=== PATIENT | female | born 2000 | race Caucasian/White ===

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

== ENCOUNTER → 2020-11-02 | Outpatient (CLI) | payer OTHER, SELFPAY ==
[2020-11-02 10:38] VITALS: BMI 35.9
[2020-11-02 16:31] LABS: Chlamydia Trachomatis by PCR Negative (Negative); Neisserai gonorrhoeae by PCR Negative (Negative); Probe Check PASS; Sample Adequacy Control PASS; Specimen Processing Control PASS
== END | disposition home or self-care (01) ==
LOC: LABSPEC 12:17
PROVIDERS: PCP Nurse Practitioner Family; Referring Provider Nurse Practitioner Women's Health; Visit Provider Nurse Practitioner Women's Health
DX: Z11.3 Encounter for screening for infections with a predominantly sexual mode of transmission (principal)
CPT/HCPCS: 87491; 87591

== ENCOUNTER → 2021-01-02 | Outpatient (CLI) | payer OTHER, SELFPAY ==
[2021-01-02 09:32] VITALS: BMI 37.1
[2021-01-05 16:17] LABS: HPV Reflexed? NOT INDICATED
== END | disposition home or self-care (01) ==
PROVIDERS: PCP Nurse Practitioner Family; Visit Provider Nurse Practitioner Women's Health
DX: Z12.4 Encounter for screening for malignant neoplasm of cervix (principal)
CPT/HCPCS: 88175; G0145

== ENCOUNTER → 2023-11-13 | Outpatient (CLI) | payer OTHER, SELFPAY ==
[2023-11-20 18:39] LABS: HPV Reflexed? NOT INDICATED
== END | disposition home or self-care (01) ==
PROVIDERS: PCP Nurse Practitioner Family; Referring Provider Nurse Practitioner Women's Health; Visit Provider Nurse Practitioner Women's Health
DX: Z12.4 Encounter for screening for malignant neoplasm of cervix (principal)
CPT/HCPCS: 88175; G0145

== ENCOUNTER → 2025-01-05 | Outpatient (CLI) | payer OTHER, SELFPAY ==
--- OUTSIDE RECORDS SUMMARY | 2025-01-05 21:18 | XMS RPT_ITS | CCD ---
Author Organization [facility] Care Team Providers Care Roof Fitter Name Role Phone Sri Damon MD Unavailable [phone] DERREK PADILLA Unavailable Unavailable DEEPALI RODRIGUEZ Unavailable Unavailable STRONG, MANDIE H Unavailable Unavailable PADILLA, DERREK K Unavailable Unavailable JENNIFER, DEEPALI Mcduffie Unavailable Unavailable STRONG, MANDIE H Unavailable Unavailable PADILLA, DERREK K Unavailable Unavailable STRONG, MANDIE H Unavailable Unavailable SUMMER CHAUDHARI Unavailable Unavailable PADILLA, DERREK K Unavailable Unavailable PADILLA, DERREK K Unavailable Unavailable STRONG, MANDIE H Unavailable Unavailable PADILLA, DERREK K Unavailable Unavailable STRONG, MANDIE H Unavailable Unavailable PHILLIP MODESTO S Unavailable Unavailable AMICONE, NICOLE - Attending Unavailable AMICONE, NICOLE - Primary Care Unavailable AMICONE, NICOLE - Admitting Unavailable Unavailable Primary Care Provider Unavailabl e Feliberto WORKERS' COMPENSATION MAGISTRATE, Iftikhar Referring Unavailable Feliberto WORKERS' COMPENSATION MAGISTRATE, Iftikhar Primary Care Unavailable Syl WORKERS' COMPENSATION MAGISTRATE, Alla Attending Unavailable Feliberto WORKERS' COMPENSATION MAGISTRATE-C, Iftikhar Primary Care Provider [phone] Feliberto WORKERS' COMPENSATION MAGISTRATE-C, Iftikhar Referring Provider [phone] [place] WORKERS' COMPENSATION MAGISTRATE-C, Alla Attending Provider Medications Current Medications Medication Drug Class(es) Dates Sig (Normalized) Sig (Original) [place] (Nk) (1 source) Start: 11-13-2023 [place] (Nk) A ctive November 13, 2023 12:00am Completed/Discontinued Medications Medication Drug Class(es) Dates Sig (Normalized) Sig (Original) OXYCODONE-ACETAMIN OPHEN (3 sources) Opioid Agonist Start: 03-07-2017 take 1 tablet by mouth four times daily as needed PERCOCET 5-325 MG TABS One tablet by mouth four times daily as needed OXYCODONE-ACETAMINO PHEN [id number] Sri Damon MD Start: 03-07-2017 take 1 tablet by chela th four times daily as needed PERCOCET 5-325 MG TABS One tablet by chela th four times daily as needed OXYCODONE-ACETAMINOPHEN [id number] Sri Damon MD [id number] actuat albuterol 0.09 mg/actuat metered dose inhaler (2 sources) beta2-Adrenergic Agonist Start: 01-28-2017 take 2 puff(s) by inhalation every four hours as needed for wheezing albuterol HFA (PROAIR HFA) 90 mcg/actuation inhaler Inhale 2 Puffs as instructed every 4 hours as needed for Wheezing/Shortness of Breath (Use with the spacer as directed). 1 Inhaler 0 01/28/2017 Active Comment on above: Inhale 2 Puffs as in structed every 4 hours as needed for Wheezing/Shortness of Breath (Use with the spacer as directed). amitriptyline hydrochloride 25 mg oral tablet (4 sources) Tricyclic Antidepressant Start: 07-16-2017 End: 09-10-2018 take 1 tablet by mouth twice daily Amitriptyline 25 mg tablet Discontinued 25 mg PO TWICE A DAY July 16, 2017 1:00am September 10, 2018 8:40am Start: 03-07-2017 AMITRIPTYLINE HCL 10 MG TABS AMITRIPTYLINE HCL [id number] Sri Damon MD breath-actuated 120 actuat beclomethasone dipropionate 0.04 mg/actuat metered dose inhaler (2 sources) Corticosteroid Start: 06-03-2019 take 1 puff(s) by inhalation twice daily QVAR REDIHALER 40 mcg/actuation inhaler Inhale 1 Puff as instructed twice daily. 0 06/03/2019 Active Comment on above: Inhale 1 Puff as ins tructed twice daily. Ethinyl Estradiol / Levonorgestrel (3 sources) Progestin, Estrogen, Progestin-containin g Intrauterine Device Start: 10-06-2020 End: 10-17-2021 take 1 tablet by mouth once daily Levonorgestrel-Et hinyl Estrad (SRONYX) 0.1mg - 20mcg per tablet Take 1 tablet by mouth once daily. 0 10/06/2020 10/17/2021 Discontinued Start: 10-06-2020 take 1 tablet by chela th once daily Levonorgestrel-Ethinyl Estrad (SRONYX) 0.1mg - 20mcg per tablet Take 1 tablet by mouth once daily. 0 10/06/2020 Active Start: 10-28-2019 End: 11-23-2020 take 1 tablet by mouth once daily Levonorgestrel-Ethinyl Estrad (Aviane) 0.1-20 mg-mcg tablet Discontinued 1 {tbl} PO daily 84 4 October 28, 2019 12:00am November 23, 2020 10:55am Comment on above: Take 1 tablet by chela th once daily. Norethindrone Ac-Eth Estradiol (9 sources) Progestin, Estrogen Start: 09-06-2019 End: 10-28-2019 Norethindrone Ac-Eth Estradiol 1-20 mg-mcg tablet Discontinued 1 {tbl} PO DAILY 63 1 September 06, 2019 3:37pm October 28, 2019 3:07pm Start: 06-10-2019 End: 09-06-2019 Norethindrone Ac-Eth Estradi ol 1-20 mg-mcg tablet Discontinued 1 {tbl} PO DAILY 63 1 June 10, 2019 1:30pm September 06, 2019 3:37pm Start: 08-21-2018 End: 06-10-2019 Norethindrone Ac-Eth Estradi ol 1-20 mg-mcg tablet Discontinued 1 {tbl} PO DAILY 63 5 August 21, 2018 9:31am June 10, 2019 1:31pm Start: 07-16-2017 End: 08-21-2018 Norethindrone Ac-Eth Estradi ol 1 EACH tablet Discontinued 1 {tbl} PO DAILY 63 5 July 16, 2017 11:55am August 21, 2018 9:31am Start: 06-21-2017 End: 07-16-2017 Norethindrone Ac-Eth Estradi ol 1 EACH tablet Discontinued 1 {tbl} PO DAILY 21 June 21, 2017 6:39pm July 16, 2017 11:56am Start: 03-07-2017 BLISOVI 24 FE 1-20 MG-MCG(24) TABS NORETHIN CEFERINO- ETH ESTRAD-FE [id number] Sri Damon MD Start: 06-26-2016 End: 06-21-2017 Norethindrone Ac-Eth Estradi ol 1 EACH tablet Discontinued 1 NMA PO DAILY June 26, 2016 1:00am June 21, 2017 6:40pm levonorgestrel 0.387951 mg/hr intrauterine system (2 sources) Progestin, Progestin-containing Intrauterine Device Start: 11-23-2020 End: 11-13-2023 levonorgestrel (MIRENA) 20 mcg/24 hours (7 yrs) 52 mg IUD 1 Each by INTRAUTERINE route one time only for 1 dose. 1 Each 0 10/17/2021 Active Comment on above: 1 Each by INTRAUTERI NE route one time only for 1 dose. melatonin 3 mg oral tablet (3 sources) Start: 03-07-2017 [facility] MELATONIN 3 MG TABS MELATONIN [id number] Sri Damon MD montelukast 10 mg oral tablet (2 sources) Leukotriene Receptor Antagonist Start: 06-23-2019 End: 10-17-2021 take 1 tablet by mouth once daily at bedtime montelukast (SINGULAIR) 10 mg tablet Indications: Moderate persistent asthma, unspecified whether complicated Take 1 tablet by mouth daily at bedtime. 30 tablet 2 06/23/2019 10/17/2021 Discontinued Comment on above: Take 1 tablet by cehla th daily at bedtime. naratriptan 2.5 mg oral tablet (2 sources) Serotonin-1b and Serotonin-1d Receptor Agonist Start: 10-06-2020 take 1 tablet by mouth every twenty-four hours as needed naratriptan (AMERGE) 2.5 mg tablet Take 1 tablet by mouth as needed. TAKE ONE(1) TABLET AT THE ONSET OF HEADACHE; IF HEADACHE RETURNS OR DOES NOT FULLY RESOLVE, THE DOSE MAY BE REPEATED AFTER 4 HOURS; DO NOT EXCEED FIVE(5) MG IN 24 HOURS. 9 tablet 5 10/06/2020 Active Comment on above: Take 1 tablet by chela th as needed. TAKE ONE(1) TABLET AT THE ONSET OF HEADACHE; IF HEADACHE RETURNS OR DOES NOT FULLY RESOLVE, THE DOSE MAY BE REPEATED AFTER 4 HOURS; DO NOT EXCEED FIVE(5) MG IN 24 HOURS. ondansetron 4 mg disintegrating oral tablet (1 source) Serotonin-3 Receptor Antagonist Start: 06-26-2016 End: 07-16-2017 take 1 tablet by mouth every eight hours as needed for nausea Ondansetron 4 MG tablet Discontinued 4 mg PO EVERY 8 HOURS NEEDED as needed for Nausea June 26, 2016 1:00am July 16, 2017 11:30am rizatriptan 10 mg oral tablet (1 source) Serotonin-1b and Serotonin-1d Receptor Agonist Start: 10-28-2019 End: 2021 take 1 tablet by mouth every two hours Rizatriptan 10 mg tablet Discontinued 0 PO .COMPLEX October 28, 2019 12:00am 2021 12:57pm take 1 tab at onset of headache; if no relief may repeat 1 tab after at least 2 hrs; max = 3 tabs/24 hr PO SULFAMETHOXAZOLE-T RIMETHOPRIM (3 sources) Dihydrofolate Reductase Inhibitor Antibacterial, Sulfonamide Antimicrobial Start: 03-07-2017 take 1 tablet by mouth twice daily BACTRIM DS 800-160 MG TABS One tablet by mouth twice daily SULFAMETHOXAZOLE-T RIMETHOPRIM [id number] Sri Damon MD topiramate 25 mg oral tablet (5 sources) Start: 10-17-2021 topiramate (TOPAMAX) 25 mg tablet Take 3 tablets in the evening for 1 week. Then take 2 tablets in the evening for 1 week. Then take 1 tablet in the evening for 1 week. 42 tablet 0 10/17/2021 Active Start: 09-28-2020 End: 10-17-2021 take 1 tablet by mouth once daily at bedtime topiramate (TOPAMAX) 100 mg tablet Take 1 tablet by mouth daily at bedtime. 30 tablet 0 10/10/2021 10/17/2021 Discontinued (Changing Therapy/Dosage Form) Start: 10-28-2019 End: 11-07-2022 take 1 capsule by mouth once daily Topiramate 100 mg capsule,extended release 24hr Discontinued 100 mg PO DAILY October 28, 2019 12:00am November 07, 2022 2:05pm Comment on above: Take 1 tablet by chela th daily at bedtime. Take 3 tablets in th e evening for 1 week. Then take 2 tablets in the evening for 1 week. Then take 1 tablet in the evening for 1 week. Problems Active Problems Problem Classification Problem Date Documented aRn esteves Episodic/Chronic Asthma (2 sources) Asthma; Translations: [Unspecified asthma, uncomplicated] Onset: 01-24-2015 01-24-2015 Chronic Headache; including migraine (6 sources) Refractory migraine without aura; Translations: [Chronic migraine without aura, intractable, with status migrainosus] Onset: 07-21-2019 07-21-2019 Chronic Menstrual disorders (1 source) Dysmenorrhea; Translations: [Dysmenorrhea, unspecified] 11-13-2023 Chronic Other circulatory disease (1 source) Other specified symptoms and signs involving the circulatory and respiratory systems; Translations: [Other specified symptoms and signs involving the circulatory and respiratory systems] Onset: 05-15-2021 Episodic Unclassified (1 source) No current problems or disability 03-07-2017 Past or Other Problems Problem Classification Problem Date Documented Da te Episodic/Chronic Headache; including migraine (6 sources) Chronic daily headache; Translations: [Chronic daily headache] Onset: 07-21-2019 07-21-2019 Episodic Inflammatory diseases of female pelvic organs (2 sources) Abscess of vulva; Translations: [Abscess of vulva] Onset: 03-07-2017 03-07-2017 Episodic Other nutritional; endocrine; and metabolic disorders (2 sources) Childhood obesity; Translations: [Overweight] Onset: 01-23-2014 01-23-2014 Episodic Spondylosis; intervertebral disc disorders; other back problems (2 sources) Neck pain; Translations: [Cervicalgia] Onset: 11-19-2019 11-19-2019 Episodic Results Test Name Value Interpretation Reference Range Facility [facility] 07-15-2023 [facility] Telephone (UCTR) KACIE OLIVIA ([id number]) 89 F Date Time Provider Department 07/15/23 ARIELLE ENNIS [facility] During your visit today, we recorded the following information about you: Arielle Ennis PA-C 07/15/2023 8:40 AM Signed Please call and let patient know that her throat culture did grow a small amount of staph bacteria so I will cover her with Keflex. Still recommend following up with ear nose and throat. Ninfa Gardner MA 07/15/2023 8:50 AM Signed Left VM instructing patient to return call to receive results. JEFFRY Blanc Brittany L, MA 07/15/2023 11:20 AM Signed Patient active MyChart. Patient notified via Fliptu message. JEFFRY Michael Donna M, RN 07/15/2023 2:55 PM Signed Spoke with patient. Given message from provider's office. Patient verbalizes understanding. Zelda Stuart RN Allergies As of Date: 07/15/2023 (No Known Allergies) Date Reviewed: 07/11/2023 Reviewed by: Caryl Ho LPN - Fully Assessed Reason for Visit: Results [95] Order(s):cephALEXin (KEFLEX) 500 mg capsuleTake 1 capsule by mouth three times a day for 10 days.Disp: 30 capsuleRfl: 0 Prescriptions as of 07/15/2023 - cephALEXin (KEFLEX) 500 mg capsule Take 1 capsule by mouth three times a day for 10 days. - levonorgestrel (MIRENA) 20 mcg/24 hours (7 yrs) 52 mg IUD 1 Each by INTRAUTERINE route one time only for 1 dose. Meds Comments as of 10/29/2019: Patient recently started a new control Problem List As Of Date 07/15/2023 Noted Resolved Childhood overweight, BMI 85-94.9 percentile [E*01/23/2014 Asthma [J45.909] 01/24/2015 Chronic daily headache [R51.9] 07/21/2019 Rebound headache [G44.40] 07/21/2019 Chronic migraine without aura, with intractable*07/21/2019 Medication overuse headache [G44.40] 07/21/2019 Intractable chronic migraine without aura and w*07/21/2019 Cervicalgia [M54.2] 11/19/2019 Prescriptions ordered this encounter Disp Refills Start End CEPHALEXIN 500 MG CAPSULE 30 c* 0 07/15/2023 07/25/2023 Route: ORAL Sig: Take 1 capsule by mouth three times a day for 10 days. Encounter Status:Closed by MIROSLAVA GRIDER on 07/15/23 [facility] Bacteria Wnd Culton 07-11-19 Bacteria identified Cx Nom (Wound) ORGANISM ID: 1 Few Staphylococcus aureus ORGANISM ID: 2 Few mixed oral and respiratory gama GRAM STAIN: Rare Gram negative bacilli Rare Gram positive cocci No Polymorphonuclear Leukocytes ORGANISM ID: 1 (STAPHYLOCOCCUS AUREUS) ------ ANTIBIOTIC INTERPRETATION BLANCA STATUS REFERENCE RANGE ------ Oxacillin S 0.5 F Susceptible <=2 , Resistant >2 Oxacillin-susceptible staphylococci are susceptible to other penicilllinase-stable penicillins, beta-lactam/beta-lactamase inhibitor combinations, anti-staphylococcal cephems, and carbapenems. Gentamicin S <=0.5 F Susceptible <=4 , Intermediate >4 , Resistant >8 Erythromycin S <=0.25 F Susceptible <=0.5 , Intermediate >.5 , Resistant >4 Clindamycin S 0.25 F Susceptible <=0.5 , Intermediate >.5 , Resistant >2 Trimeth sulfameth S <=10 F Susceptible <=40 , Resistant >40 Vancomycin S <=0.5 F Susceptible <=2 , Intermediate >2 , Resistant >8 Rifampin S <=0.5 F Susceptible <=1 , Intermediate >1 , Resistant >2 Rifampin should not be used alone for antimicrobial therapy. Tetracycline S <=1 F Susceptible <=4 , Intermediate >4 , Resistant >8 Doxycycline S <=0.5 F Susceptible <=4 , Intermediate >4 , Resistant >8 Abnormal [facility] Comment on above: Performed By: #### 6 [id number] #### [facility] CLIA [id number] [address] [place], [place] [id number] [place] CNOVon 07-11-2023 CNOV Office Visit (UCWSTR ) KACIE OLIVIA ([id number]) 89 F Date Time Provider Department 07/11/23 3:15 PM MARK HERNANDEZ [facility] During your visit today, we recorded the following information about you: Temperature Pulse Respiration Blood pressure 98.4 degrees 72/minute 18/minute 113/80 Weight 107.5 kg Mark Hernandez MD 07/11/2023 4:09 PM Signed Patient presents with: Sore Throat: For months has had strep several times Ear Pain: Left ear pain x 1 day HPI: Feeling left tonsil pain intermittently for 7 months. She thinks the original visit in November was negative for strep. Had strep in December and May. She did not improve rapidly with antibiotic treatment. She reports in childhood she had multiple negative rapid strep tests with positive cultures. Positive symptoms: Sore throat, left Earache today, nasal/sinus pressure, a little Fatigue, Negative symptoms: Rhinorrhea, Post nasal drainage, Fever, Body Aches, Vomiting, Diarrhea, OTC: nasal spray, Dayquil. Prescribed amoxicillin in December, icef 06/18/23 (stopped early because it gave her a yeast infection). She uses no inhalers. MEDICATIONS: Current Outpatient Medications Medication Sig levonorgestrel (MIRENA) 20 mcg/24 hours (7 yrs) 52 mg IUD 1 Each by INTRAUTERINE route one time only for 1 dose. No current facility-administered medications for this visit. ALLERGIES: ALLERGIES No Known Allergies VITALS: BP 113/80 Pulse 72 Temp 36.9 ?C (98.4 ?F) Resp 18 Wt 107.5 kg (237 lb) LMP (LMP Unknown) SpO2 100% BMI 38.25 kg/m? PHYSICAL EXAM: GEN: Pleasant, in no acute distress. HEENT: PERRL, EOMI, conjunctiva clear Ears: canals clear. TMs without erythema, bulge, or effusion Sinuses: non-tender frontal sinus, non-tender maxillary sinuses Throat: moist mucous membranes, left tonsil with erythema, 2+ edema and cryptic exudate Neck: supple, no thyromegaly, no lymphadenopathy HEART: regular rate and rhythm, no murmurs LUNGS: clear to auscultation, no wheezes or crackles, no increased WOB ASSESSMENT/PLAN: 1. Exudative tonsillitis - ICD9: 463, ICD10: J03.90 (primary diagnosis) 2. Sore throat - ICD9: 462, ICD10: J02.9 - STREP A MOLECULAR (POC) negative. - ABSCESS AND WOUND CULTURE WITH GRAM STAIN for non-group A strep or other bacteria. - CONSULT TO ENT Supportive care with OTC analgesia, lozenges, and gargles. Discussed mononucleosis and strep carrier state. She will wait to see if ENT wants blood work. Mark Hernandez MD Allergies As of Date: 07/11/2023 (No Known Allergies) Date Reviewed: 07/11/2023 Reviewed by: Caryl Ho LPN - Fully Assessed Reason for Visit: Sore Throat [200] Cmt: For months has had strep several times Ear Pain [817] Cmt: Left ear pain x 1 day Primary Visit Diagnosis:Exudative tonsillitis [J03.90] Other Visit Diagnosis:Sore throat [J02.9] Order(s):STREP A MOLECULAR (POC) [2110740] Order #: [id number]. #:[id number] CONSULT TO ENT [900] Order #: [id number]: 1 FUTURE ABSCESS AND WOUND CULTURE WITH GRAM STAIN [SQWCUL] Order #: [id number]. #:[id number] Prescriptions as of 07/11/2023 - levonorgestrel (MIRENA) 20 mcg/24 hours (7 yrs) 52 mg IUD 1 Each by INTRAUTERINE route one time only for 1 dose. Meds Comments as of 10/29/2019: Patient recently started a new control Problem List As Of Date 07/11/2023 Noted Resolved Childhood overweight, BMI 85-94.9 percentile [E*01/23/2014 Asthma [J45.909] 01/24/2015 Chronic daily headache [R51.9] 07/21/2019 Rebound headache [G44.40] 07/21/2019 Chronic migraine without aura, with intractable*07/21/2019 Medication overuse headache [G44.40] 07/21/2019 Intractable chronic migraine without aura and w*07/21/2019 Cervicalgia [M54.2] 11/19/2019 Medications Discontinued During This Encounter Prescriptions - topiramate (TOPAMAX) 25 mg tablet (Discontinued) Reported on 01/15/2023 - naratriptan (AMERGE) 2.5 mg tablet (Discontinued) Reported on 01/15/2023 - QVAR REDIHALER 40 mcg/actuation inhaler (Discontinued) Reported on 07/11/2023 - albuterol HFA (PROAIR HFA) 90 mcg/actuation inhaler (Discontinued) Reported on 07/11/2023 Encounter Status:Closed by MARK HERNANDEZ on 07/11/23 [facility] 01-15-2023 CNOV Office Visit (UCWSTR ) KACIE OLIVIA ([id number]) 89 F Date Time Provider Department 01/15/23 4:30 PM LEIGH LUCIANO MARÍA ELENA During your visit today, we recorded the following information about you: Temperature Pulse Respiration Blood pressure 97.2 degrees 91/minute 16/minute 132/68 Weight 110.3 kg Leigh Luciano APRN.CNP 01/15/2023 5:00 PM Signed This note was created using NoteWriter. Subjective Kacie R Rolince is a 22 year old female. 22 year old female with PMH migraines presents for complaints of illness. Acute onset one month ago +sore throat Roxana like something is on their +left sided tender lymph nodes Denies accompanying URI sx Denies cough Denies fever or chills Denies difficulty handling secretions or swallowing. The history is provided by the patient. No english as a second language instructor was used. Sore Throat This is a new problem. The current episode started more than 1 month ago. The problem has been unchanged. Neither side of throat is experiencing more pain than the other. There has been no fever. The pain is at a severity of 6/10. The pain is moderate. Associated symptoms include swollen glands. Pertinent negatives include no abdominal pain, congestion, coughing, diarrhea, drooling, ear discharge, ear pain, headaches, hoarse voice, plugged ear sensation, neck pain, shortness of breath, stridor, trouble swallowing or vomiting. She has had no exposure to strep or mono. She has tried nothing for the symptoms. The treatment provided no relief. PAST MEDICAL HISTORY Diagnosis Date Asthma 05/08/2011 Concussion 06/02 Concussion May 2016 Menarche 2012 Age 11 NEGATIVE HISTORY OF -2013 Normal Color V ision Unspecified constipation Varicella 1 year of age PAST SURGICAL HISTORY Procedure Laterality Date COLONOSCOPY age 2 yrs; blood in stool; fissure ALLERGIES Patient has no known allergies. MEDICATIONS amoxicillin (AMOXIL) 500 mg capsule Take 1 capsule by mouth twice daily for 10 days. levonorgestrel (MIRENA) 20 mcg/24 hours (7 yrs) 52 mg IUD 1 Each by INTRAUTERINE route one time only for 1 dose. topiramate (TOPAMAX) 25 mg tablet Take 3 tablets in the evening for 1 week. Then take 2 tablets in the evening for 1 week. Then take 1 tablet in the evening for 1 week. (Patient not taking: Reported on 01/15/2023) naratriptan (AMERGE) 2.5 mg tablet Take 1 tablet by mouth as needed. TAKE ONE(1) TABLET AT THE ONSET OF HEADACHE; IF HEADACHE RETURNS OR DOES NOT FULLY RESOLVE, THE DOSE MAY BE REPEATED AFTER 4 HOURS; DO NOT EXCEED FIVE(5) MG IN 24 HOURS. (Patient not taking: Reported on 01/15/2023) QVAR REDIHALER 40 mcg/actuation inhaler Inhale 1 Puff as instructed twice daily. albuterol HFA (PROAIR HFA) 90 mcg/actuation inhaler Inhale 2 Puffs as instructed every 4 hours as needed for Wheezing/Shortness of Breath (Use with the spacer as directed). FAMILY HISTORY Problem Relation Age of Onset Hypertension Maternal Grandfather Coronary Artery Disease Maternal Grandfather Double By-Pass Heart Maternal Grandfather other (brain aneurysm) Maternal Grandfather Hypertension Maternal Grandmother Aneurysm Paternal Grandfather age 37 of brain aneruysm Social History Tobacco Use Smoking status: Never Smokeless tobacco: Never Substance Use Topics Alcohol use: No Drug use: No Review of Systems Constitutional: Negative for activity change, appetite change, chills, fever and unexpected weight change. HENT: Positive for sore throat. Negative for congestion, drooling, ear discharge, ear pain, hoarse voice and trouble swallowing. Respiratory: Negative for cough, shortness of breath and stridor. Cardiovascular: Negative for chest pain, palpitations and leg swelling. Gastrointestinal: Negative for abdominal pain, diarrhea and vomiting. Musculoskeletal: Negative for arthralgias, back pain and neck pain. Skin: Negative for color change, pallor, rash and wound. Allergic/Immunologic: Negative for environmental allergies, food allergies and immunocompromised state. Neurological: Negative for dizziness, facial asymmetry and headaches. Hematological: Positive for adenopathy. Does not bruise/bleed easily. Psychiatric/Behavioral: Negative for agitation and behavioral problems. Objective BP 132/68 Pulse 91 Temp 36.2 ?C (97.2 ?F) (Temporal) Resp 16 Wt 110.3 kg (243 lb 3.2 oz) LMP (LMP Unknown) SpO2 98% BMI 39.25 kg/m? Physical Exam Vitals and nursing note reviewed. Constitutional: General: She is not in acute distress. Appearance: Normal appearance. She is normal weight. She is not ill-appearing, toxic-appearing or diaphoretic. HENT: Head: Normocephalic and atraumatic. Right Ear: Ear canal and external ear normal. Left Ear: Ear canal and external ear normal. Nose: Nose normal. No congestion or rhinorrhea. Mouth/Throat: Mouth: (more content not included)... Normal [facility] CULTURE THROATon 05-15-2021 CULTURE THROAT CULTURE THROAT _THROAT CULTURE_ M I C R O B I O L O G Y R E P O R T FINAL ----- Antimicrobial Susceptibility and Organism Identification Report ------ Specimen Number : [id number] Requested : 05/15/21 Specimen Source : THROAT Collected : 05/15/21 17:55 Duong of Isolation : OUTPATIENT Received : 05/15/21 17:55 Requesting Physician : OLAF Patient/Specimen Tests and Comments Specimen Comments ------ ------ FINAL REPORT: MODERATE GROWTH COAG POSITIVE STAPH Organisms Identified -------- * 01 Staphylococcus aureus 05/20/21 Tech : Source : THROAT ID # : [id number] FINAL Report Date : / / : Collected : 05/15/21 17:55 Continued on Next Page M I C R O B I O L O G Y R E P O R T FINAL ----- Antimicrobial Susceptibility and Organism Identification Report ------ Isolate 01 Staphylococcus aureus Staphylococcus aureus DRUG BLANCA Sys. Urine UNITS ML/DL --- ----- ----- Amp/Sulbactam <=8/4 S Ampicillin <=2 RADHA Amox/K Clav <=4/2 S Clindamycin <=0.5 S Cefoxitin Screen <=4 NEG Ciprofloxacin <=1 S Daptomycin <=0.5 S Erythromycin <=0.5 S Nitrofurantoin <=32 Levofloxacin <=1 S Linezolid 2 S Moxifloxacin <=0.5 S Oxacillin 0.5 S Penicillin 8 RADHA Rifampin <=1 S Synercid <=0.5 S Trimeth/Sulfa <=0.5/9.5 S Tetracycline <=4 S Vancomycin 1 S B-Lactamase Positive +, ++, +++, or S = Susceptible N/R = Not Reported Radha = Beta Lactamase Positive I = Intermediate CC = Cost Code TFG = Thymidine-dependent Strain R = Resistant BLANCA = mcg/ml (mg/L) Blank = Data not available, or drug not advisable or tested For Blood and CSF Isolates, a Beta-Lactamase test is recommended for Enterococus species. IB appears in place of S, I (S), +, ++, or +++ with species known to possess inducible B-lactamases; potentially they may become resistant to all B-lactam drugs. Monitoring of patients during/after therapy is recommended. Avoid other/combined B-lactam drugs. (a) Use maximum doses of drug with an aminoglycoside for P. aeruginosa in patients with granulocytopenia or serious infections. (b) Breakpoints based on parenteral dose. For cefuroxime Axetil (PO) use <8=S, 8-16=I, >16=R. (c) For non-enterococcal streptococci, Micrococcus species, and Listeria species, refer to the Ampicillin interpretation. * Interpretations based on approx. adult attainable systemic/urine levels, except drugs with <3 dilutions, which print NCCLS. Doses are guidelines; consider weight and renal/hepatic function. Urine interpretation for lower UTI only. Interpretations based on NCCLS M7-A2. Ticar/K Clav'ate for gram positives based on hospice team lead's breakpoints. Tech : Source : THROAT ID # : [id number] FINAL Report Date : / / : Collected : 05/15/21 17:55 05/20/21.1301.KLS. 05/18/21.1355.KLS. 05/17/21.0724.MERA. 05/20/21.1301.KLS.COMPLETE Normal [facility] Comment on above: Performed By: #### [id number] #### [facility],[address] [address] Progress Noteon 03-14-2017 Tablet Coater Authentication Interface Message Text Chief ComplaintPatient presents with Blurred VisionHistory of Presenting Problem:HPI Blurred VisionLaterality: both eyesOnset: unknownQuality: blurred (Things will combine together)Severity: mildFrequency: intermittentlyTiming: throughout the day and when readingContext: distance visionCourse: stableAssociated symptoms: headache and double vision (After 5-10 minutes in)Treatments tried: analgesicsResponse to treatment: significant improvement CommentsReferred by Dr Padilla. Concussion 05/2016. Taking headache meds now, helpful.Blurred vision and refocusing issues at near started prior to concussion Last edited by Modesto Phillip OD on 03/14/2017 1:31 PM. (History)Ocular History:Ocular HistoryPast Medical History:History reviewed. No pertinent past medical history.History reviewed. No pertinent surgical history.Review of Systems:Review of SystemsConstitutional: Negative for fever.HENT: Negative for congestion.Eyes: Positive for blurred vision. Negative for double vision, photophobia,pain, discharge and redness.Respiratory: Negative for cough.Gastrointestinal: Negative for vomiting.Skin: Negative for rash.Neurological: Negative for headaches.Endo/Heme/Allergie s: Negative for environmental allergies.All other systems reviewed and are negative.A complete ROS was performed. Pertinent positives have been documented above orare in the HPI. All other systems were negative.Allergies:No Known AllergiesMedications:Current Outpatient PrescriptionsMedication Sig Dispense Refill amitriptyline (ELAVIL) 10 MG tablet 20 mg at night 60 Tab 6 BLISOVI 24 FE 1-20 MG-MCG(24) tablet TAKE 1 TABLET BY MOUTH ONCE DAILY. 2 melatonin 3 MG tablet Take 1 Tab (3 mg) by mouth nightly at bedtime 30 Tab 3 PROAIR HFA 108 (90 Base) MCG/ACT inhaler magnesium oxide (MAG OX) 400 MG TABS tablet Take 1 Tab (400 mg) by mouth daily30 Tab 3No current facility-administered medications for this visit.Family Medical History:History reviewed. No pertinent family history.Social History:Social HistorySocial HistorySocial History Marital status: Single Spouse name: N/A Number of children: N/A Years of education: N/ASocial History Main Topics Smoking status: Never Smoker Smokeless tobacco: Never Used Alcohol use None Drug use: None Sexual activity: Not AskedOther Topics Concern NoneSocial History NarrativeExam:Physical ExamBase Eye Exam Visual Acuity (HOTV - Blocked) Right LeftDist sc 20/20 20/20Near sc J1+ J1+Pupils PupilsRight PERRLLeft PERRLVisual Timmons (Counting fingers) Right LeftResult Full FullExtraocular Movement Right LeftResult Full, Ortho Full, OrthoNeuro/Psych Oriented x3: YesDilation Both eyes: 1.0% Cyclogyl @ 1:47 PMAdditional Tests Color Right LeftHardy - [place] - [place] 04/02 04/02Stereo Fly: + Animals: 3/3 Circles: ccommodation Right Left BothNPA 18 cm 18 cmStrabismus Exam Method: Alternate cover Distance Near Near +3.00DS Near Bifocals Correction: sc X 2 X' 4 Observations: Ortho NPC: 7 cm, 7 cm, 7 cm PRA: -2.25/-1.75NRA: +2.25/+1.75CT through +1.00 - X' 4CT through +2.00 - X' 7Slit Lamp and Fundus Exam External Exam Right Left External Normal NormalSlit Lamp Exam Right Left Lids/Lashes Normal Normal Conjunctiva/Sclera White and quiet White and quiet Cornea Clear Clear Anterior Chamber Deep and quiet Deep and quiet Iris Round and reactive Round and reactive Lens Clear Clear Vitreous Normal NormalFundus Exam Right Left Disc Normal Normal C/D Ratio 0.05 0.05 Macula Normal Normal Vessels Normal Normal Periphery Normal NormalRefraction Wearing Rx Age: NONEManifest Refraction (Auto) Sphere Cylinder AxisRight [place] +0.25 059Left [place] +0.50 086 Pupillary Distance: 63Cycloplegic Refraction Sphere Cylinder Ringle DistRight [place] Sphere 20/20Left [place] +0.50 085 20/20Final Rx Sphere Cylinder AxisRight +1.00 SphereLeft +1.00 +0.50 085 Type: SVL Expiration Date: 03/15/2019 Pupillary Distance: 63Impression/Plan/Recommenda tions:1. Hyperopia, bilateral2. Accommodative dysfunctionGlasses prescription given for near tasks.Mild accommodative dysfunction on testing but able to read 20/20 at near.Fisher Chart given for at home exercises.RTC for yearly eye exams or sooner if increase Normal [facility] Append: vaginal cyston 03-07 Documentation of current medications (procedure) Done Invalid Interpretation Code [facility] [place] Tobacco use [facility] Never smoker Invalid Interpretation Code [facility] [place] Office Visit: vaginal cyston 03-07-2017 Documentation of current medications (procedure) Done Invalid Interpretation Code [facility] [place] Fall risk assessment No Invalid Interpretation Code [facility] [place] Tobacco smoking status NHIS Never Invalid Interpretation Code [facility] [place] Tobacco use HS Never smoker Invalid Interpretation Code [facility] [place] Progress Noteon 03-05-2017 Tablet Coater Authentication Interface Message Text Date of service: 03/05/2017[facility] - Follow-upEmjosselyn TopeteJimOB: 2000MRN: [id number]: 16 y.o.Allergies: No Known Allergies - reviewed today.Chief complaint: TBI (06/21/16), headaches, emotionality, difficulty fallingasleepHPI I saw Dr Rodriguez's patient Kacie Olivia for neurological follow-up. Kacieis a 16 y.o. R handed female accompanied by her mother. Kacie has a history oftwo concussions.I saw Kacie initially on 02/05/17 (see that note for event description) .Symptoms at that time were headaches, emotionality, insomnia. PCCS score was38. Exam at that time was remarkable for suspect convergence insufficiency, andthere is also some pallor at 6 oclock on L fundus on an undilated exam withoutclear disc edema, otherwise nonfocal exam .Management wasHeadache =Prevention = Magnesium oxide 400 mg, amitriptyline increasing to 15 mg,biobehavioral methods (Wong)Rescue = Aleve 440 mg, Tylenol 650 mg, Benadryl 25 mg.Visual symptoms = [facility] referral.Cognitive and mood issues = Counseling with a therapist of family's choiceI advanced her to level 1 of the return to play protocolEmjosselyn has the following medical problem list:Patient Active Problem ListDiagnosis Asthma Concussion Chronic post-traumatic headache, not intractable Sleep disturbanceEmjosselyn takes the following medications:Current Outpatient PrescriptionsMedication Sig Dispense Refill ibuprofen (MOTRIN) 200 MG tablet Take by mouth every 8 hours as needed forPain TAKES 2-3 PRN Take with meals. PROAIR HFA 108 (90 Base) MCG/ACT inhaler BLISOVI 24 FE 1-20 MG-MCG(24) tablet TAKE 1 TABLET BY MOUTH ONCE DAILY. 2 magnesium oxide (MAG OX) 400 MG TABS tablet Take 1 Tab (400 mg) by mouth daily30 Tab 3 melatonin 3 MG tablet Take 1 Tab (3 mg) by mouth nightly at bedtime 30 Tab 3 amitriptyline (ELAVIL) 10 MG tablet 10 mg at night X 1 week, then 15 mg atnight 45 Tab 2No current facility-administered medications for this visit.INTERVAL HISTORYMother called on 02/14 requesting that Kacie be cleared to cheer at [employer] 02/15. I had agreed to do this if Kacie had been on amitriptyline for a weekand had a decrease in headaches. See 02/21/17 phone note1. Headaches Headaches are back a little but are not as intense. They doincrease with activityInterval headache history:Frequency: mostly resolved (though on the PCCS she did endorse headache andnausea as 1 each)Onset without aura of sikh, frontal or forehead pressure and/or pounding,intensity 7/10, accompanied by nausea, dizziness, light and noise sensitivity,anorexia, lasting 1-several hours, but not >24 hrs.Today's Pain Score: 0/10Appetite/Fluid intake/Rest:Breakfast = occasionally during school.Hydration = excellentSleep = back to normal which is excellent - and did not need melatonin.LMP: no relationship notedLast headache 03/01 and before that, she can't remember - she has not taken anyrescue medicationCurrent medications used for headache:Amitriptyline 15 mgAleve 440 mgTylenol 650 mgImaging: none for this issue2. Cervical none reported3. Ocular double vision when she reads - ophthalmology followup is pending4. Vestibular back to premorbid motion sickness5. Sleep Back to premorbid good habits. .6. Cognitive Kacie has mental fogginess, problems with concentration, andmemory, and mother reports that this pre-dates the concussion.7. Mood probably less irritable. Mother thinks she is more irritable andmoody.INTERVAL PMH REVIEW Development/School 12th grade [employer]. 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 This summer she has worked 20-22 hrs, and in the fall it willbe 15 hrs/week. She is hoping to cheer, plays flute in the bandPhysical examBP 114/70 Pulse 104 Ht 167.5 cm Wt 88.3 kg BMI 31.47 kg/e7Apxljyo examSkin:NormalHEENT: No pain on palpation of head or faceNeck = Supple without tenderness or limitation of motionCardiac:Regular rate and rhythm without any murmurs and normal cardiac soundsand no carotid bruitsAbd:Soft, no organomegaly, masses or tenderness.Neurological examMental status:Alert, speaks in full sentences with normal prosody andarticulation.Cranial nerves: II - Discs flat. No edema or hemorrhages. Visual timmons full toconfrontation testing bilaterally . No visual allodynia III, IV, - Pupils 3 mm, equal and reactive bilaterally without afferentdefect. Extraocular movement intact. No nystagmus. Near point convergence 5 cm; near point accommodation is L 13 cm and R 12 cmSaccades normal . VOR not provocative for symptoms of headache IX, X - Palatal elevation normal XI - No head tilt XII - Tongue midllineGait/station:Gait narrow basedRomberg normalTandem stance:eyes open = stableeyes closed = stableHeel and toe maneuvers intactNo intention tremor or tremor at rest. Finger to nose intact bilaterally.Motor: Normal strength to manual muscle testing at biceps, triceps, wristdorsiflexion, film processing utility worker, hip flexion, knee flexion, ankle dorsiflexion, ankleplantarflexion bilaterally.Normal bulk and tone bilaterallyReflexes: R LBiceps 2 2Triceps 2 2Brachioradialis 2 2Patellar 2 2Ankle 2 2Clonus? 0 0Plantar responses flexor bilaterally.[place] abnormal findings on exam: resolving convergence issues, nonfocal examPediatric Post-Concussion Scale Score: Last 24 hrs before this visit 11 (alll1s). These scores are not consistent with post-concussive syndromeMedical decision-making:Kacie has recovered from her TBI with only lingering convergence issues and theamitriptyline is covering the headaches. My plan is to stop the magnesium andkeep on with the amitriptyline at a slightly increased dose for 6 months, thenwe will consider tapering it and stopping itASSESSMENT1. Concussion, without LOC, initial encounter2. Convergence insufficiency3. Chronic post-traumatic headache, not intractable amitriptyline (ELAVIL) 10MG tabletRECOMMENDATIONSStop magnesium oxideIncrease amitriptyline [facility] for followupFOLLOWUP6 monthsCounseling and/or coordination of care (face to face) was 20 minutes, which ismore than 50% of the total time of 30 minutes spent on this encounterSmarco a Padilla MD Normal [facility] Progress Noteon 02-05-2017 Tablet Coater Authentication Interface Message Text [facility] SystemuroDecarra[facility] Science BeechmontBrain Injury Program NoteName: Kacie TopeteGrzegorz: [id number] of service: 02/05/2017Referring physician: Deepali RodriguezSupplements: noneMedications:Current Outpatient PrescriptionsMedication Sig Dispense Refill ALBUTEROL IN Inhale into the lungs 2 PUFFS AND UNKNOWN DOSAGE ibuprofen (MOTRIN) 200 MG tablet Take by mouth every 8 hours as needed forPain TAKES 2-3 PRN Take with meals.No current facility-administered medications for this visit.ALLERGIES:Not on FileChief complaint TBI (06/21/16), headaches, emotionality, difficulty fallingasleepHPIEmily Aston Olivia, a R handed 16 y.o. female, was seen today in the Brain InjuryProgram for a new visit, accompanied by her mother. The following informationwas available at the time of the office visit: Epic chart, history from Kacieand her mother. Medications and allergies are listed above.Kacie has the following pre-injury problem list:Patient Active Problem ListDiagnosis Asthma.Kacie has had one previous head injuryPresent episode: 06/21/16Today is 229 days (7m17d) after the injury.TBI Description = Kacie was chasing her cat, mother had opened the freezer door,and she hit the back L side of her head on the freezer doorLOC = nonePost traumatic amnesia = noneAcute symptoms = head pain at site of hit, dizziness and nausea.Management = initially treated with restSeen [facility] [place] [facility] after [facility] to [facility] date[facility] Symptoms were light sensitivity, blurredvision, headache, nausea with any type of exertion(driving reading or lookingat iPad) and noise sensitivity, problems attending school Exam unknown - norecords available. Management diagnosed concussion.Seen in PCP office 01/28/17 - 1 week prior to today's visit). Symptoms werepersisting headache X 05/2016, a positive depression screen and chronic Rshoulder pain Exam nonfocal. Management Referred to TBI Neuro, XR of shoulderand plan for PT of shoulder if films normal, and if no progress will refer toorthopedics.Imaging = shoulder XR negative 01/28/17 Today's concerns following her recent TBI are headaches 2-5 days a week forwhich she takes ibuprofen 400-600 mg 1-2 days/week, with occasional relief. Sheis dizzy at times. She seems more emotional to her mother, and has haddifficulty falling asleep.Prior episode: 05/31/10Today is 6y8m7d after the injury.TBI Description = Kacie was hit in the head with the elbows of 2 other playersLOC = nonePost-traumatic amnesia = noneAcute symptoms = headacheManagement = Seen 06/02/10 ([facility]). Symptoms = headache. Exam =nonfocal. Diagnosed a mild concussion. Mother reports headache and dizziness X1 day. Note [address] Dr Gerhard cedillo for play at the time of the 06/02/10 visitImaging = nonePost Concussive Symptoms reviewed in the following domains:Physical:Headache:Em josselyn dates headaches to the concussion in May 2016Current headache history:Frequency: dailyDescription: Onset without aura of sikh, frontal or forehead pressure and/orpounding, intensity 7/10, accompanied by nausea, dizziness, light and noisesensitivity, anorexia, lasting 1-several hours, but not >24 hrs.Character: pulling across the temples, frontal and forehead pressure like jose manuel is pressing against her skull, pounding and sometimes lessLocation: variableRadiation: oneAverage pain scale: 7/10Aura: noneAssociated symptoms: nausea, dizziness, light and noise sensitivity, anorexia.Any Focal Neurologic symptoms with headache: mother reports that she is drainedand irritable.Duration: as short a few hours, and as long as a day, but never goes into thenext dayAbortive Treatment: sleep always helps, ibuprofen sometimes helpsFamily history of headache: father, mother (but no formal diagnosis of migraine)Aggravating Factors: activity, heatAny recent E.R. Visits for headache: nonePreventive treatment: noneToday's Pain Score: 3-4/10Appetite/Fluid intake/Rest:Breakfast = not so much in the summer, occasionally during school and when shedoes, includes proteinHydration = adequateSleep = see belowLast headache today, and before that, yesterday, and the last time she tookibuprofen was 02/01/17Medications tried in past for headaches:Ibuprofen 400 mg-600 mg = sometimes helpsCurrent medications used for headache:sameImaging: none for this issueVestibular: Reports premorbid motion sickness which wears off when she gets outof the car, but now she gets a headache with the motion sickness since shestarted having headaches. No tinnitus. There are no problems with balanceOcular: without headache, she notices that things double up when she reads. Shehas to blink several times to clear her vision and was present before theconcussion.Cervical:No pain or limitation of motionCognitive: Kacie is a rising 12 grader at [employer]. Kacie has no history of learningdisability, but when she was in elementary school, she went to [facility] [employer] for reading comprehension support in 3rd grade. Her 7th grade teachersaid she would never excel in Romanian, but the teacher last year recommended [employer]. No IEP, speech therapy, or a diagnosis of ADD/ADHD. Previous gradeshave been As (with more effort needed at the end of last year. School startsAugust 24. She is college bound - hoping to go in-state for the first 2 years.Kacie has mental fogginess, problems with concentration, and memory, and motherreports that this pre-dates the concussion. 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 School attendance was not impacted significantly by concussion inWinter/Spring 2017Sleep: Premorbidly, weekday bedtime is 9PM; wake up time is 6:30AM. Weekendbedtime is 11:30 PM; wakeup time is a little later. There are no premorbidsleep initiation issues and no maintenance issues. There is no snoring Since the head injury, sleep has not been supergreat. She lays in beduntil 9:30 but can't fall asleep until 11:30 PM, and mother things this dates toconcussionMood: She is more irritable now per her own report (mother agrees). She saysshe used to be a happy, patient person. Kacie is thinking the BCP might becontributing. Mother is thinking her busy schedule might be contributing, andfinds her more emotional/irritable than she used to beReview Of Systems: General: Reports no specific concern. Sleep: see HPI Eyes: Reports no specific concern. Ear, Nose, Throat: Reports no specific concern. Cardiovascular: Reports no specific concern. Respiratory: asthma Gastrointestinal: colonoscopy age 2 (blood in stool - fissure) Genitourinary: Reports no specific concern. Musculoskeletal: chronic R shoulder pain with pitching Skin: Reports no specific concern. Endocrine: menarche 2012 Heme/Lymphatic: Reports no specific concern. Allergic/Immunlogic: Reports no specific concern. Psychiatric: In the past, Kacie had not had counseling.Family History: Cardiovascular:.Cardiovascul ar problems under the age of 30 = nonereported, stroke = MGGM - age 84 yrs, myocardial infarction = MGF (coronaryartery disease - double bypass, cardiac arrhythmias, MGGF X 2, DVT= nonereported, cardiomyopathy none reported. Hypertension (MGF) Neurologic:Seizures: P gt aunt - as a child into adulthood.Learning problems: cousin with dyslexiaHeadaches: parents (see HPI)Abnormal movements: MGM (Parkinson and possibly a tic), M uncle - tic - tics areundiagnosedIntellectual disability:none reportedOther neurologic problems: brain aneurysm (PGF - age 36). 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 [place] she has worked 20-22 hrs, and in the fall it will be 15 hrs/week. She ishoping to cheer, plays flute in the bandPhysical examBP 110/70 Pulse 96 Ht 167.6 cm Wt 86.5 kg BMI 30.79 kg/j8Lkaodyl examSkin:NormalHEENT: No pain on palpation of head or faceNeck = Supple without tenderness or limitation of motionCardiac:Regular rate and rhythm without any murmurs and normal cardiac soundsand no carotid bruitsAbd:Soft, no organomegaly, masses or tenderness.Neurological examMental status:Alert, speaks in full sentences with normal prosody andarticulation.Cranial nerves: II - Discs - L shows pallor at 6 o clock below the disc but no edema Visualacuity 20/20 to near card testing Visual timmons full to confrontation testingbilaterally . No visual allodynia III, IV, - Pupils 3 mm, equal and reactive bilaterally without afferentdefect. Extraocular movement intact. No nystagmus. Near point convergence 8 cm; near point accommodation is L 9 cm and R 10 cm.Saccades normal . VOR not provocative for symptoms of headache or dizziness IX, X - Palatal elevation normal XI - No head tilt XII - Tongue midllineGait/station:Gait narrow basedRomberg normalTandem stance:eyes open = stableeyes closed = stableHeel and toe maneuvers intactNo intention tremor or tremor at rest. Finger to nose intact bilaterally.Motor: Normal strength to manual muscle testing at biceps, triceps, wristdorsiflexion, film processing utility worker, hip flexion, knee flexion, ankle dorsiflexion, ankleplantarflexion bilaterally.Normal bulk and tone bilaterallyReflexes: R LBiceps 2 2Triceps 2 2Brachioradialis 2 2Patellar 2 2Ankle 2 2Clonus? 0 0Plantar responses flexor bilaterally.Sensory exam:Intact to vibration at toe tips bilaterallyKey abnormal findings on exam: suspect convergence insufficiency, and there isalso some pallor at 6 oclock on L fundus on an undilated exam without clear discedema, otherwise nonfocal examPSYCHOLOGICAL SCREENINGPediatric Post-Concussion Scale Score: First 24 hrs after injury 59; Last 24 hrsbefore this visit 38 (irritability and emotionality = 4 - highest scores).These scores are possibly consistent with post-concussive syndrome.The Mason Depression Inventory was completed.The raw score was 19 and the T-score was 57. This is in the mildly elevatedrange.The Mason Anxiety Inventory was completed.The raw score was 20 and the T-score was 55. This is in the average range.The Convergence Insufficiency Symptom Survey was completed.Total score = 30.Repeatable Battery for the Assessment of Neuropsychological Status (02/05/17- )Index Scores: (lojk=345, standard deviation=15)Immediate Memory: 97Visuospatial/Constructiona l: 90Language: 109Attention: 97Delayed Memory: 92Recommendations:No concerns. No decline in academics since head injury last May, but Kaciereports that she has had to put extra effort to keep good gradesMedical decision-making: aKcie has persisting chronic daily headaches, which, in part could be relatedto overuse of ibuprofen. These are not migrainous in quality and are possiblypost-traumatic headaches. It is not clear to me whether the eye findingsrepresent some post-traumatic changes or not; you can have convergenceinsufficiency even without head injury, and I would like her to be evaluated bythe ophthalmolgists to work out the details. The irritability is likely related in part to the daily headaches. There maybe a reading disorder here as well, so after we resolve the headaches, we maylook into this further. Biobehavioral management of headaches may be anotheralternative for headache/mood management. We have discussed this today It is estimated that a million children and teens in the [place] have aconcussion. The team discussed with Kacie and and her mother what is currentlyknown about traumatic brain injury (TBI) and concussion. Based on what ispresently known, we have every expectation that Kacie will fully recover fromthis injury. Our job is to help Kacie get there as easily as possible and toput Kacie and family in touch with what will help this process. Current research shows that structured, gradual return to activities, bothphysical and mental, is the best way to work toward recovery. Re-injury duringthe period of brain recovery will prolong the rehabilitation (second impact).This is because brain healing may lag behind disappearance of symptoms, so it isimportant to have a plan for recovery I emphasized that avoiding additional brain injury in the recovery period iscritical. The potential for delayed healing and serious complications includinglasting brain injury and from a second impact before healing is completewas made clear to them. They were also informed that there is a greater risk ofhaving subsequent concussions after sustaining a concussion, although there isno evidence to help us calculate the risk. Kacie and her mother acknowledged that they understood these points and myrecommendations.VISIT DIAGNOSES:1. Concussion, without LOC, initial encounter2. Convergence insufficiency Referral to Ophthalmology3. Chronic post-traumatic headache, not intractable magnesium oxide (MAG OX)400 MG TABS tablet amitriptyline (ELAVIL) 10 MG tablet EKG 12 lead (ECG) Referral to [facility]4. Sleep disturbance melatonin 3 MG tablet5. Encounter for screening for eye and ear disorders Ocular Screen InstrumentBased, BilateralRECOMMENDATIONS:ADD ITIONAL TESTING EKGREHABILITATION RECOMMENDATIONS:Headache treatment: Treating headache in TBI takes a cue from how we treatmigraine. It is important to update the team in about 10 days so we can stayahead of the headaches.Rescue Treating a severe headache (rescue) - no more than 1-2 times/weekA. Lay down in a cool, dark quiet roomB. Apply cold compress to forehead.C. When at home: Benadryl 25 mgD. For head pain: Aleve 440 mg X 1. If no better in 2 hours, take Tylenol 650 mgX 1Prevention:What you can do:Get regular rest, limit daytime naps, eat well and stay hydratedTake rest breaks during the day as needed, 5-10 minutes for eye strain orheadaches, may need to wear sunglasses for bright light.Protection against post-concussive headaches - magnesium and amitriptylineThese are dietary supplements, see patient information handout for indicationsand side effects. You may buy these over the counter if desired. Riboflavinonly comes in 100 mg size and is OK in tablet or capsule form. Magnesium oxide 400 mg daily Amitriptyline 10 mg at night X 1 week, then 15 mg at night. You will need toget an EKG first before stating this.Vision treatmentSome vision symptoms are caused by headache. We treat headache first to see howmuch that helps. Additional therapy for problems with convergence (focusing)can be helpful - I [facility]. Please call [phone] to schedule thisMood treatment:Psychological evaluation and counseling with a therapist of your choice orbiobehavioral therapy. See printed list for therapists in your area to call -an order for this has been provided today. You can schedule with Dr Marvin garcia [phone] accommodations - A separate return to learn/academic accommodation plan(CEFERINO) for school has not been given to the family:Other recommendationsGeneral physical activity limitations: Kacie should NEVER return to play ifstill having ANY symptoms Be sure that Kacie does not have any symptoms at restand while participating in physical activity or activities that require a lot ofthinking or concentration. Be sure that the teacher theater arts, personal development coach,and/or head animal trainer are aware of the injury and symptoms. No contact sports or participation in sport practices until you have been onamitriptyline 15 mg at night for 1 week, then can start the RTP to see how youdo Begin Return to Play sequenceRETURN TO PLAY:Physical activity (Return to Play) should occur in gradual steps. While I amrecommending no contact or collision sports until I clear you , current 2017recommendations recommend that you begin regular physical activity early in yourrehabilitation (you can start this 1 week after you have been on [id number] mg at night for 1 week). First, you start with aerobic exercise only toincrease your heart rate (e.g., stationary cycle), moving to increasing yourheart rate with movement (e.g., running); Second stage is light weightlifting.The later stages focus on adding sport-specific drills, then controlled contactif appropriate; and finally return to sports competition.Pay careful attention to your symptoms and your thinking and concentrationskills at each stage of activity. Move to the next level of activity only if youdo not experience any symptoms at the each level. In many guided rehabilitationprograms, they set your exercise level at 80% of the level that causes yousymptoms at each stage. Pushing through symptoms is never appropriate and willset back your return to full functioning. If your symptoms return, stop theseactivities and let your health lawn care technician know. Identify someone tomonitor your progress through this sequence each day (head animal trainer, personal development coach,psychiatric aides teacher, and/or parent).ACTIVITY LEVELS:1. May start low level of physical activity. This includes walking, lightjogging, light stationary biking, light weightlifting (lower weight, higherreps, no bench, no squats), continue this level for 1 week and then call.Schedule regulation: Be sure to get into a routine for sleeping, eating,hydrating and light exercise the same time daily, (see schedule regulationhandout).Be sure to get 8-10 hours of restful sleep each night, (see sleep hygienehandout).Be sure to drink throughout the day (see Concussion Tips Handout). Increasefluid intake to at least 2 liters/day, at least half of fluid intake should bewater.Make sure to use relaxation to lessen stress as much as possible. (See handout).No caffeine, artificial sweeteners or energy drinks.Do not skip any meals, add more protein to diet at each meal, eat frequently.FOLLOWUP 4 weeksCounseling and/or coordination of care (face to face) was 40 minutes, which ismore than 50% of the total time of 60 minutes spent on this encounterSmarco a Padilla MD [facility] Vital Signs Date Time Vital Sign Value Performing Clinician Jagjit gross 01-05-2025 09:26-0400 Body height 167.64 cm Iftikhar MARCUS Work Phone: [facility] 01-05-2025 09:22-0400 Body mass index (BMI) [Ratio] 34.9 kg/m2 Iftikhar MARCUS Work Phone: [facility] 01-05-2025 09:22-0400 Body weight 98.2 kg Iftikhar MARCUS Work Phone: [facility] 01-05-2025 09:22-0400 Diastolic blood pressure 82 mm[Hg] Iftikhar Dao [employer] Work Phone: [facility] 01-05-2025 09:22-0400 Systolic blood pressure 116 mm[Hg] Iftikhar Dao [employer]C Work Phone: [facility] 03-07-2017 16:31-0400 BMI (Body Mass Index) 31.6 kg/m2 Sri Damon MD [facility] 03-07-2017 16:31-0400 Body Temperature 97.7 [degF] Sri Damon MD [facility] 03-07-2017 16:31-0400 BP Diastolic 76 mm[Hg] Sri Damon MD [facility] 03-07-2017 16:31-0400 BP Systolic 126 mm[Hg] Sri Damon MD [facility] 03-07-2017 16:31-0400 Height 167.64 cm Sri Damon MD [facility] 03-07-2017 16:31-0400 Respiratory Rate 16 /min Sri Damon MD [facility] 03-07-2017 16:31-0400 Weight 88.81 kg Sri Damon MD [facility] Encounters Encounter Date Encounter Type Care Provider Facility Start: 01-05-2025 End: 01-05-2025 ambulatory Iftikhar Dao NP [facility] Start: 01-05-2025 End: 01-05-2025 Patient encounter procedure Alla LUDWIGC -[facility] Work Phone: Start: 01-05-2025 End: 01-05-2025 Patient encounter status Alla Streeter NP-C [facility] Start: 07-11-2023 End: 07-11-2023 ambulatory Facility:[facility] [place] Start: 01-15-2023 End: 01-15-2023 ambulatory Facility:[facility] [place] Start: 10-17-2021 End: 10-17-2021 ambulatory Katie Fishman APRN.DRY TRANSFER WORKER Work Phone: Neurology Comment on above: Migraine without aur a and without status migrainosus, not intractable (Primary Dx) Start: 10-17-2021 End: 10-17-2021 Telemedicine consultation with patient Katie Abelverodenice OTONIEL Work Phone: [facility] Start: 10-10-2021 Refill Katie Huffcathy morales APRN.CNP Work Phone: Neurology Comment on above: Refill Request Start: 05-15-2021 End: 05-15-2021 ambulatory [facility] Start: 03-14-2017 End: 03-14-2017 Ambulatory [facility] Start: 03-05-2017 End: 03-05-2017 Ambulatory [facility] Start: 02-05-2017 End: 02-05-2017 [facility] Start: 02-05-2017 End: 02-06-2017 Ambulatory [facility] Procedures Date Procedure Procedure Detail Performing Clinician Start: 10-17-2021 Adult depression screening assessment Katie Melissa FREDERICK Work Phone: Start: 10-06-2020 Adult depression screening assessment Katie Abelverodenice OTONIEL Work Phone: Plan of Treatment Date Care Activity Detail Author Start: 10-17-2022 Adult depression screening assessment DEPRESSION SCREENING [facility] Start: 02-22-2022 Influenza vaccination INFLUENZA (Season Ended) [facility] Start: 10-06-2021 Adult depression screening assessment DEPRESSION SCREENING [facility] Start: 05-08-2021 Urine microalbumin profile DTAP,TDAP,TD (7 - Td or Tdap) [facility] Start: 03-25-2021 COVID-19 VACCINE (3 - Booster for Moderna series) COVID-19 VACCINE (3 - Booster for Moderna series) [facility] Start: 11-20-2020 COVID-19 VACCINE (2 - Moderna 3-dose series) COVID-19 VACCINE (2 - Moderna 3-dose series) [facility] Start: 11-05-2020 PAP TESTING PAP TESTING [facility] Start: 06-23-2020 ANNUAL PCP TEAM CHRONIC DISEASE VISIT ANNUAL PCP TEAM CHRONIC DISEASE VISIT [facility] Start: 11-05-2018 ONE PNEUMOVAX PRIOR TO AGE 65 ONE PNEUMOVAX PRIOR TO AGE 65 [facility] Start: 11-05-2017 ANNUAL PCP TEAM CHRONIC DISEASE VISIT ANNUAL PCP TEAM CHRONIC DISEASE VISIT [facility] Start: 11-05-2017 CHLAMYDIA SCREENING (18-24) CHLAMYDIA SCREENING (18-24) [facility] Start: 11-05-2017 GC (GONORRHEA) SCREENING (18-24) GC (GONORRHEA) SCREENING (18-24) [facility] Start: 11-05-2017 HEPATITIS C SCREENING HEPATITIS C SCREENING [facility] Start: 11-05-2017 HIV SCREENING HIV SCREENING [facility] Start: 11-05-2017 SPIROMETRY SPIROMETRY [facility] Start: 03-11-2017 End: 03-11-2017 Appointment Appointment [facility] Start: 03-07-2017 End: 03-07-2017 Appointment Appointment [facility] Start: 11-05-2013 PEDS TO ADULT TRANSITION ANNUAL ASSESSMENT PEDS TO ADULT TRANSITION ANNUAL ASSESSMENT [facility] Start: 2011 PEDS TO ADULT TRANSITION INITIAL DISCUSSION PEDS TO ADULT TRANSITION INITIAL DISCUSSION [facility] Start: 11-05-2009 MENINGOCOCCAL B: Consider based on risk (1 of 2 - Risk Bexsero 2-dose series) MENINGOCOCCAL B: Consider based on risk (1 of 2 - Risk Bexsero 2-dose series) [facility] Start: 2003 ASTHMA CONTROL TEST ASTHMA CONTROL TEST [facility] Start: 11-05-2001 ASTHMA ACTION PLAN ASTHMA ACTION PLAN [facility] Immun[facility] Immunization Date Immunization Notes Care Provider Fa cility 10-23-2020 COVID-19 vaccine, fu ll dose (MODERNA) Katie Fishman APRN.DRY TRANSFER WORKER Work Phone: [facility] 01-28-2017 hepatitis A vaccine, pediatric/adolescent dosage, 2 dose schedule Katie Fishman APRN.DRY TRANSFER WORKER Work Phone: [facility] 01-26-2016 meningococcal polysaccharide (groups A, C, Y and W-135) diphtheria toxoid conjugate vaccine (MCV4P) Katie Fishman APRN.DRY TRANSFER WORKER Work Phone: [facility] 01-22-2014 human papilloma viru s vaccine, quadrivalent Katie Janethi SECURITY SALES MANAGER.[facility] Work Phone: [facility] 12-17-2012 hepatitis A vaccine, unspecified formulation Katie Fowleri SECURITY SALES MANAGER.[facility] Work Phone: [facility] 12-17-2012 human papilloma viru s vaccine, quadrivalent Katie Janethi SECURITY SALES MANAGER.[facility] Work Phone: [facility] 01-26-2012 human papilloma viru s vaccine, quadrivalent Katie Nafelai SECURITY SALES MANAGER.[facility] Work Phone: [facility] Work Phone: 05-08-2011 influenza virus vacc ine, live, attenuated, for intranasal use Katie Fowleri SECURITY SALES MANAGER.[facility] Work Phone: [facility] Work Phone: 05-08-2011 Meningococcal, MCV4, unspecified conjugate formulation(groups A, C, Y and W-135) Katie Fishman SECURITY SALES MANAGER.[facility] Work Phone: [facility] Work Phone: 05-08-2011 tetanus toxoid, redu marilia diphtheria toxoid, and acellular pertussis vaccine, adsorbed Katie Fishman SECURITY SALES MANAGER.[facility] Work Phone: [facility] Work Phone: 03-13-2010 influenza virus vacc ine, live, attenuated, for intranasal use Katie Fowleri SECURITY SALES MANAGER.[facility] Work Phone: [facility] Work Phone: 04-11-2009 influenza virus vacc ine, live, attenuated, for intranasal use Katie Janethi SECURITY SALES MANAGER.[facility] Work Phone: [facility] 05-27-2008 influenza virus vacc ine, live, attenuated, for intranasal use Katie Janethi SECURITY SALES MANAGER.[facility] Work Phone: [facility] Work Phone: 01-18-2005 diphtheria, tetanus toxoids and pertussis vaccine Katie Nacathyovski SECURITY SALES MANAGER.[facility] Work Phone: [facility] Work Phone: 01-18-2005 measles, mumps and rubella virus vaccine Katie Nacathyovski SECURITY SALES MANAGER.[facility] Work Phone: [facility] Work Phone: 01-18-2005 poliovirus vaccine, inactivated Katie Nacathyovski SECURITY SALES MANAGER.[facility] Work Phone: [facility] Work Phone: 02-17-2001 diphtheria, tetanus toxoids and pertussis vaccine Katie Nacathyovski SECURITY SALES MANAGER.[facility] Work Phone: [facility] Work Phone: 02-17-2001 haemophilus influenz ae type b vaccine, HbOC conjugate Katie Nafelai SECURITY SALES MANAGER.[facility] Work Phone: [facility] Work Phone: 11-20-2000 measles, mumps and rubella virus vaccine Katie Nacathyovski SECURITY SALES MANAGER.[facility] Work Phone: [facility] Work Phone: 08-08-2000 hepatitis B vaccine, pediatric or pediatric/adolescent dosage Katie Janethi SECURITY SALES MANAGER.[facility] Work Phone: [facility] Work Phone: 05-13-2000 diphtheria, tetanus toxoids and pertussis vaccine Katie Nacathyovski SECURITY SALES MANAGER.[facility] Work Phone: [facility] Work Phone: 05-13-2000 haemophilus influenz ae type b vaccine, HbOC conjugate Katie Nacathyovski SECURITY SALES MANAGER.[facility] Work Phone: [facility] Work Phone: 05-13-2000 poliovirus vaccine, inactivated Katie Najdovski SECURITY SALES MANAGER.[facility] Work Phone: [facility] Work Phone: 03-29-2000 diphtheria, tetanus toxoids and pertussis vaccine Katie Najdovski SECURITY SALES MANAGER.[facility] Work Phone: [facility] Work Phone: 03-29-2000 haemophilus influenz ae type b vaccine, HbOC conjugate Katie Najdovski SECURITY SALES MANAGER.[facility] Work Phone: [facility] Work Phone: 03-29-2000 poliovirus vaccine, inactivated Katie Najdovski SECURITY SALES MANAGER.[facility] Work Phone: [facility] Work Phone: 01-09-2000 diphtheria, tetanus toxoids and pertussis vaccine Katie Najdovski SECURITY SALES MANAGER.[facility] Work Phone: [facility] Work Phone: 01-09-2000 haemophilus influenz ae type b vaccine, HbOC conjugate Katie Najdovski SECURITY SALES MANAGER.[facility] Work Phone: [facility] Work Phone: 01-09-2000 poliovirus vaccine, inactivated Katie Najdovski SECURITY SALES MANAGER.[facility] Work Phone: [facility] Work Phone: 1999 hepatitis B vaccine, pediatric or pediatric/adolescent dosage Katie Najdovski SECURITY SALES MANAGER.[facility] Work Phone: [facility] Work Phone: 1999 hepatitis B vaccine, pediatric or pediatric/adolescent dosage Katie Najdovski SECURITY SALES MANAGER.[facility] Work Phone: [facility] Work Phone: Payers Date Payer Category Payer Self-pay 2019 Unknown [id number] 2019 Unknown MMO MMO [employer] [id number] 2019-Present [phone] [address] [place] [address] PPO [id number] 1999 Unknown [id number] Unknown [id number] Social History Date Type Detail Facility Start: 01-05-2025 Tobacco smoking stat [facility] Never smoked tobacco [facility] Start: 10-06-2020 End: 10-17-2021 Alcohol intake Current non-drinker of alcohol (finding) [facility] Start: 1999 Sex Assigned At Female [facility] Gender Identity Identifies as ma le gender (finding) [facility] Sexual Orientation Heterosexual (finding) [facility] Progress note 07-11-2023 Note Date & Type Note Facility 07-11-2023 Note HNO ID: [id number] Author: MARK HERNANDEZ MD Service: ? Author Type: Physician Type: Progress Notes Filed: 07/11/2023 16:09 Note Text: Patient presents with: Sore Throat: For months has had strep several times Ear Pain: Left ear pain x 1 day HPI: Feeling left tonsil pain intermittently for 7 months. She thinks the original visit in November was negative for strep. Had strep in December and May. She did not improve rapidly with antibiotic treatment. She reports in childhood she had multiple negative rapid strep tests with positive cultures. Positive symptoms: Sore throat, left Earache today, nasal/sinus pressure, a little Fatigue, Negative symptoms: Rhinorrhea, Post nasal drainage, Fever, Body Aches, Vomiting, Diarrhea, OTC: nasal spray, Dayquil. Prescribed amoxicillin in December, Omnicef 06/18/23 (stopped early because it gave her a yeast infection). She uses no inhalers. MEDICATIONS: Current Outpatient Medications Medication Sig levonorgestrel (MIRENA) 20 mcg/24 hours (7 yrs) 52 mg IUD 1 Each by INTRAUTERINE route one time only for 1 dose. No current facility-administered medications for this visit. ALLERGIES: ALLERGIES No Known Allergies VITALS: BP 113/80 Pulse 72 Temp 36.9 ?C (98.4 ?F) Resp 18 Wt 107.5 kg (237 lb) LMP (LMP Unknown) SpO2 100% BMI 38.25 kg/m? PHYSICAL EXAM: GEN: Pleasant, in no acute distress. HEENT: PERRL, EOMI, conjunctiva clear Ears: canals clear. TMs without erythema, bulge, or effusion Sinuses: non-tender frontal sinus, non-tender maxillary sinuses Throat: moist mucous membranes, left tonsil with erythema, 2+ edema and cryptic exudate Neck: supple, no thyromegaly, no lymphadenopathy HEART: regular rate and rhythm, no murmurs LUNGS: clear to auscultation, no wheezes or crackles, no increased WOB ASSESSMENT/PLAN: 1. Exudative tonsillitis - ICD9: 463, ICD10: J03.90 (primary diagnosis) 2. Sore throat - ICD9: 462, ICD10: J02.9 - STREP A MOLECULAR (POC) negative. - ABSCESS AND WOUND CULTURE WITH GRAM STAIN for non-group A strep or other bacteria. - CONSULT TO ENT Supportive care with OTC analgesia, lozenges, and gargles. Discussed mononucleosis and strep carrier state. She will wait to see if ENT wants blood work. Mark Hernandez MD [facility] Progress note 01-15-2023 Note Date & Type Note Facility 01-15-2023 Note HNO ID: [id number] Author: Leigh Luciano APRN.DRY TRANSFER WORKER Service: ? Author Type: Nurse Practitioner Type: Progress Notes Filed: 01/15/2023 5:00 PM Note Text: This note was created using NoteWriter. Subjective Kacie Olivia is a 22 year old female. 22 year old female with PMH migraines presents for complaints of illness. Acute onset one month ago +sore throat Roxana like something is on their +left sided tender lymph nodes Denies accompanying URI sx Denies cough Denies fever or chills Denies difficulty handling secretions or swallowing. The history is provided by the patient. No english as a second language instructor was used. Sore Throat This is a new problem. The current episode started more than 1 month ago. The problem has been unchanged. Neither side of throat is experiencing more pain than the other. There has been no fever. The pain is at a severity of 6/10. The pain is moderate. Associated symptoms include swollen glands. Pertinent negatives include no abdominal pain, congestion, coughing, diarrhea, drooling, ear discharge, ear pain, headaches, hoarse voice, plugged ear sensation, neck pain, shortness of breath, stridor, trouble swallowing or vomiting. She has had no exposure to strep or mono. She has tried nothing for the symptoms. The treatment provided no relief. PAST MEDICAL HISTORY Diagnosis Date Asthma 05/08/2011 Concussion 06/02 Concussion May 2016 Menarche 2012 Age 11 NEGATIVE HISTORY OF Normal Color V ision Unspecified constipation Varicella 1 year of age PAST SURGICAL HISTORY Procedure Laterality Date COLONOSCOPY age 2 yrs; blood in stool; fissure ALLERGIES Patient has no known allergies. MEDICATIONS amoxicillin (AMOXIL) 500 mg capsule Take 1 capsule by mouth twice daily for 10 days. levonorgestrel (MIRENA) 20 mcg/24 hours (7 yrs) 52 mg IUD 1 Each by INTRAUTERINE route one time only for 1 dose. topiramate (TOPAMAX) 25 mg tablet Take 3 tablets in the evening for 1 week. Then take 2 tablets in the evening for 1 week. Then take 1 tablet in the evening for 1 week. (Patient not taking: Reported on 01/15/2023) naratriptan (AMERGE) 2.5 mg tablet Take 1 tablet by mouth as needed. TAKE ONE(1) TABLET AT THE ONSET OF HEADACHE; IF HEADACHE RETURNS OR DOES NOT FULLY RESOLVE, THE DOSE MAY BE REPEATED AFTER 4 HOURS; DO NOT EXCEED FIVE(5) MG IN 24 HOURS. (Patient not taking: Reported on 01/15/2023) QVAR REDIHALER 40 mcg/actuation inhaler Inhale 1 Puff as instructed twice daily. albuterol HFA (PROAIR HFA) 90 mcg/actuation inhaler Inhale 2 Puffs as instructed every 4 hours as needed for Wheezing/Shortness of Breath (Use with the spacer as directed). FAMILY HISTORY Problem Relation Age of Onset Hypertension Maternal Grandfather Coronary Artery Disease Maternal Grandfather Double By-Pass Heart Maternal Grandfather other (brain aneurysm) Maternal Grandfather Hypertension Maternal Grandmother Aneurysm Paternal Grandfather age 37 of brain aneruysm Social History Tobacco Use Smoking status: Never Smokeless tobacco: Never Substance Use Topics Alcohol use: No Drug use: No Review of Systems Constitutional: Negative for activity change, appetite change, chills, fever and unexpected weight change. HENT: Positive for sore throat. Negative for congestion, drooling, ear discharge, ear pain, hoarse voice and trouble swallowing. Respiratory: Negative for cough, shortness of breath and stridor. Cardiovascular: Negative for chest pain, palpitations and leg swelling. Gastrointestinal: Negative for abdominal pain, diarrhea and vomiting. Musculoskeletal: Negative for arthralgias, back pain and neck pain. Skin: Negative for color change, pallor, rash and wound. Allergic/Immunologic: Negative for environmental allergies, food allergies and immunocompromised state. Neurological: Negative for dizziness, facial asymmetry and headaches. Hematological: Positive for adenopathy. Does not bruise/bleed easily. Psychiatric/Behavioral: Negative for agitation and behavioral problems. Objective BP 132/68 Pulse 91 Temp 36.2 ?C (97.2 ?F) (Temporal) Resp 16 Wt 110.3 kg (243 lb 3.2 oz) LMP (LMP Unknown) SpO2 98% BMI 39.25 kg/m? Physical Exam Vitals and nursing note reviewed. Constitutional: General: She is not in acute distress. Appearance: Normal appearance. She is normal weight. She is not ill-appearing, toxic-appearing or diaphoretic. HENT: Head: Normocephalic and atraumatic. Right Ear: Ear canal and external ear normal. Left Ear: Ear canal and external ear normal. Nose: Nose normal. No congestion or rhinorrhea. Mouth/Throat: Mouth: Mucous membranes are moist. Pharynx: Posterior oropharyngeal erythema (Uvula midline. Handling secretions.) present. No oropharyngeal exudate. Eyes: General: Right eye: No discharge. Left eye: No discharge. Extraocular Movements: Extraocular movements intact. Conjunctiva (more content not included)... [facility] History of Present illness Narrative 10-17-2021 Katie Fishman APRN.[facility] - 10/17/2021 2:30 PM EDT Note Date & Type Note Facility 10-17-2021 History of Presen t illness Narrative [facility] - Follow up Virtual Visit Patient's headache clinic evaluation was scheduled as a virtual visit using the following platform ZOOM Kacie Olivia was identified by name and and consented to the video evaluation and its limitations. Based on this evaluation it may be necessary for them to schedule a follow up evaluation with me or other neurologists for formal physical examination and if necessary,other studies. Accompanied by: Self Primary Problem List: ACTIVE PROBLEM LIST Childhood Overweight, Bmi 85-94.9 Percentile Asthma Chronic Daily Headache Rebound Headache Chronic Migraine Without Aura, With Intractable Migraine, So Stated, With Status Migrainosus Medication Overuse Headache Intractable Chronic Migraine Without Aura and Without Status Migrainosus Cervicalgia Chief Complaint: Follow-up Impression and Plan from last visit: Virtual visit 10/06/2020 with Me. Miss Olivia is a 20-year-old female with history significant for chronic migraine, neck pain, asthma, concussion (06/21/2016), chronic post concussive syndrome and obesity. At her last visit she was to start Amerge, continue Topiramate, continue physical therapy and consider VMATCH. Interval Headache History: Does not see significant benefit with Naratriptan (Amerge). She gets more relief with OTC medications. Has had improvement in neck pain overall with physical therapy. Migraines have been well controlled since last Summer. She is interested in tapering off her Topiramate. Headache 1 Onset: - Started around the age of 16. Severity: 6-7/10 Location: Starts bifrontal and retro-orbital and will radiate back to the temples and occiput. Quality/Description: dull, numbing, pressure and throbbing Associated symptoms: photophobia, phonophobia, neck pain, nausea, dizziness, confusion, tingling and blurred vision Worse with activity: yes Number of migraine days per month: 4 Number of headache free days/month: 26 Duration of headaches with treatment: Hours and works best in combination with sleep. Current treatment: Topiramate, Amerge, Ibuprofen, Tylenol Triggers: sleep- too much, caffeine, stress, menses and stress release Onset of headache to peak: gradual Relieving factors: Sleep, stretching, medication (reduces severity), ice > heat, laying down, dark Positional changes: no Most common time of day for headache to begin: afternoon (around 3-4 PM typically) Prodrome: general sense of feeling unwell Aura: none Medications effective? Alternates Tylenol and Ibuprofen. Seems to work better for her than Naratriptan. Works best in combination with sleep. # of doses of abortive medications per month: 4 days per month Caffeine: Stopped 2 years ago. Alcohol: 1-2 glasses of wine or 1 beer a week. Tobacco Use: Denies Contraceptive Method(s): Mirena IUD - feels switching to the IUD has helped reduce her headaches. Other Therapies Physical therapy Anti-Convulsant Topiramate (Topamax, Trokendi XL, Qudexy) Anti-Depressant and Antipsychotic Amitriptyline (Elavil) Anti-Migraine Naratriptan (Amerge) Rizatriptan (Maxalt) Sumatriptan (Imitrex, Sumavel) Blood Pressure Propranolol (Inderal) Supplements Magnesium Riboflavin Over the Counter Medications Acetaminophen (Tylenol) Ibuprofen (Advil, Motrin) PAST MEDICAL HISTORY Diagnosis Date Asthma 05/08/2011 Concussion 06/02 Concussion May 2016 Menarche 2012 Age 11 NEGATIVE HISTORY OF Normal Color V ision Unspecified constipation Varicella 1 year of age PAST SURGICAL HISTORY Procedure Laterality Date COLONOSCOPY age 2 yrs; blood in stool; fissure ALLERGIES No Known Allergies Issues and questions to be addressed: Medications levonorgestrel (MIRENA) 20 mcg/24 hours (7 yrs) 52 mg IUD 1 Each by INTRAUTERINE route one time only for 1 dose. naratriptan (AMERGE) 2.5 mg tablet Take 1 tablet by mouth as needed. TAKE ONE(1) TABLET AT THE ONSET OF HEADACHE; IF HEADACHE RETURNS OR DOES NOT FULLY RESOLVE, THE DOSE MAY BE REPEATED AFTER 4 HOURS; DO NOT EXCEED FIVE(5) MG IN 24 HOURS. QVAR REDIHALER 40 mcg/actuation inhaler Inhale 1 Puff as instructed twice daily. albuterol HFA (PROAIR HFA) 90 mcg/actuation inhaler Inhale 2 Puffs as instructed every 4 hours as needed for Wheezing/Shortness of Breath (Use with the spacer as directed). topiramate (TOPAMAX) 25 mg tablet Take 3 tablets in the evening for 1 week. Then take 2 tablets in the evening for 1 week. Then take 1 tablet in the evening for 1 week. I have reviewed the [place] Status Assessment responses and discussed these with the patient: Yes, Katie Fishman APRN.[employer] WORK[employer] HEADACHE SCORES: Headache Questions 10/29/2019 10/06/2020 10/17/2021 ER visits since last office visit: 0 0 0 Hospital stays since last office visit 0 0 0 Limited ADLs in the last month: 3 0 0 Time missed from work or school in the last month: - 0 0 Days headache pain free in the last month: 10 8 28 Days per month with ALL of the following symptoms - decreased productivity, light sensitivity and nausea: 15 10 4 Days per month with non-migraine headache: - 12 -2 Initial improvement of headache after botox injection at last visit: Not applicable, I did not have a botox injection at my last visit Not applicable, I did not have a botox injection at my last visit Not applicable, I did not have a botox injection at my last visit PRN medication usage in the last month: 15 8 4 Patient impression of improvement since last visit: Much improved Minimally improved Much improved HIT-6 10/29/2019 10/06/2020 10/17/2021 HIT-6 64 (Severe impact) 66 (Severe impact) 64 (Severe impact) SALOMÓN - 2/7 SCORES 10/29/2019 10/06/2020 10/17/2021 SALOMÓN-2 Score 2 1 0 Migraine Specific QOL - Higher scores indicate better HRQL 10/29/2019 Role Function-Restrictive Transformed Score (range: 0-100) 60 Role Function-Preventive Transformed Score (range: 0-100) 95 Emotional Function Transformed Score (range: 0-100) 53.33 PHQ-9 10/29/2019 10/06/2020 10/17/2021 Score 4 4 4 Studies to Review: No New Health Issues: No New Social History: No New Family History: No Review of Systems: Sleep: Better, averages about 8 hours per night. Follows a better sleep routine now. Mood: Stable. Energy: Good. Appetite: Good. Weight 212 lbs Stress: Getting better. Exercising: Walking. Physical Examination: Vital Signs: LMP (LMP Unknown) General: Well appearing, in no acute distress, alert. Pain Behaviors: No pain behaviors observed. Neurological: Mental Status: Alert and oriented to person, place and time. Affect is normal and appropriate. Speech is spontaneous and fluent without dysarthria, normal in rate, volume and articulation and clear, coherent, and relevant. Short and long term care pharmacist memory, cognition and general fund of knowledge are good. Attention span and concentration are excellent. HEENT: Head is normocephalic and features were symmetric. Cranial Nerves: III, IV, -EOMI: full. VII-face is symmetric without evidence of weakness. VIII-hearing intact. IMPRESSION: Migraine without aura and without status migrainosus, not intractable (primary encounter diagnosis) Miss Olivia is a delightful 20-year-old woman who presents virtually for follow-up. Her headaches are most consistent with episodic migraine without aura. Her headaches have been well controlled since last Summer and overall much less frequent. She did not have much relief with Naratriptan and finds Tylenol or Ibuprofen work better for rescue treatment. She is interested in tapering off Topiramate given her good headache control for the past 6-12 months. PLAN: HEADACHE MANAGEMENT: (You are the primary guardian of your health and headache. Keep track of all medications: This includes the reason for use, side effects and benefits.) MEDICATION TREATMENT: Abortive therapy: -Continue Ibuprofen or Tylenol as needed. Limit use to 2 days per week or 9 days per month. -Could consider gepant in future. Preventive therapy: -Taper off Topiramate as instructed. Headache education was done. Discussed triggers and lifestyle modifications. Discussed treatment options including preventive and acute medications, natural supplements, and infusion therapy. Discussed medication overuse headache and to limit use of acute treatments to no more than 2 days/week or 10 days/month. Discussed medication side effects, adverse reactions and drug interactions. Follow-up: update via [employer], 6 months, 1 year, PRN Level of service: Est level 3 (20-29 min). Time spent 24 min on the day of service, which included preparing to see the patient, [id number] patient care, completing clinical documentation, obtaining and/or reviewing separately obtained history, performing a medically appropriate examination, counseling and educating the patient/family/caregiver and ordering medications, tests, or procedures. Katie Fishman APRN.CHASE documented in this encounter [facility] Note 10-10-2021 Telephone Encounter - Katie Fishman APRN.CNP - 10/10/2021 4:24 PM EDTTelephone Encounter - Elicia Sigala - 10/10/2021 4:08 PM EDT Note Date & Type Note Facility 10-10-2021 Miscellaneous Notes The following approved medication requests have been transmitted electronically. Signed Prescriptions Disp Refills topiramate (TOPAMAX) 100 mg tablet 30 tablet 0 Sig: Take 1 tablet by mouth daily at bedtime. BEAR: No Authorizing Provider: KATIE FISHMAN APRN.CNP October 10, 2021 4:24 PM Physician: Melissa Call from patient requesting refill. Please E-Scribe Last OV: 10/06/20 with Melissa Future OV: 10/17/21 with Melissa Pending Prescriptions Disp Refills TOPIRAMATE 100 MG TABLET 90 tablet 3 Sig: Take 1 tablet by mouth daily at bedtime. BEAR: No Pharmacy Name: [facility] documented in this encounter [facility] Evaluation note Note Date & Type Note Facility Evaluation note Diagnosis Migraine without aura and without status migrainosus, not intractable- Primary Migraine without aura, without mention of intractable migraine without mention of status migrainosus documented in this encounter [facility] Evaluation note Note Date & Type Note Facility Evaluation note Diagnosis Onset Date Resolution Encounter for routine gynecological examination noneactive January 05, 2025 9:19am [facility] Work Phone: Reason for referral (narrative) Note Date & Type Note Facility Reason for referral (narrative) No reason for referral information available [facility] Work Phone: Summary Purpose Family History Relationship Condition Age at Onset Recorded Date/T carmen grandmother Cardiac disease Unknown Diabetes mellitus Unknown grandfather Cardiac disease Unknown Cerebral aneurysm Unknown Advance Directives No Advanced Directives Records FoundNo Advanced Directives Records FoundNo Advanced Directives Records FoundNo Advanced Directives Records Found Chief Complaint and Reason for Visit Chief Complaint Admit Date Annual (ICT HELP DESK TECHNICIAN) January 05, 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 Reason for Visit Admit Date Encounter for routine gynecological exam ination Nathaly 15th, 2025 9:19am Additional Source Comments INFORMATION SOURCE (unrecogn ized section and content) DATE CREATED AUTHOR 12/18/2017 [facility] DATE CREATED AUTHOR AUTHOR'S ORGANIZ ATION 05/22/[address] [facility] DATE CREATED AUTHOR AUTHOR'S ORGANIZ ATION 07/16/2023 [facility] DATE CREATED AUTHOR AUTHOR'S ORGANIZ ATION 01/03/2025 [facility] Source Comments (unrecognize d section and content) In the event this informatio n is protected by the Federal Confidentiality of Alcohol and Drug Abuse Patient Records regulations: The Federal rules restrict any use of the information to criminally investigate or prosecute any alcohol or drug abuse patient.[facility] the event this information is protected by the Federal Confidentiality of Alcohol and Drug Abuse Patient Records regulations: The Federal rules restrict any use of the information to criminally investigate or prosecute any alcohol or drug abuse patient.[facility] Reason for Visit (unrecogniz ed section and content) Reason Onset Date Comments Refill Request 10/10/2021 Reason Comments Follow Up Care Teams (unrecognized sec tion and content) Team Status: Active Member Role/Relationship Status Dates Dr. Mandie Renee MD Family Provider Active Iftikhar Dao NP, NP-C Primary Care Provider Active Team Status: Inactive Member Role/Relationship Status Dates Iftikhar Dao NP, NP-C Primary Care Provider Active Start: January 05, 2025 End: January 05, 2025 Iftikhar Dao NP, NP-Tenisha Referring Provider Active S tart: January 05, 2025 End: January 05, 2025 Alla Streeter NP, VANIC Attending Provider Active Start: January 05, 2025 End: January 05, 2025 Goals (unrecognized section and content) Goals may be documented in a n alternate section FOR RECORDS PERTAINING TO PATIENTS WHO ARE OR HAVE BEEN ENROLLED IN A CHEMICAL DEPENDENCY/SUBSTANCEABUSE PROGRAM, SOME INFORMATION MAY BE OMITTED. This clinical summary was aggregated from multiple sources. Caution should be exercised in using it in the provision of clinical care. This summary normalizes information from multiple sources, and as a consequence, information in this document may materially change the coding, format and clinical context of patient data. In addition, data may be omitted in some cases. CLINICAL DECISIONS SHOULD BE BASED ON THE PRIMARY CLINICAL RECORDS. [employer] provides no warranty or guarantee of the accuracy or completeness of information in this document.
--- OUTSIDE RECORDS SUMMARY | 2025-01-05 21:18 | XMS RPT_ITS | CCD ---
Author Organization [facility] Care Team Providers Care Foiling Machine Adjuster Name Role Phone Sri Damon MD Unavailable [phone] DERREK PADILLA Unavailable Unavailable DEEPALI RODRIGUEZ Unavailable [...] Unavailable Primary Care Provider Unavailabl e Feliberto PHARMACY TECH, Iftikhar Referring Unavailable Feliberto PHARMACY TECH, Iftikhar Primary Care Unavailable Syl PHARMACY TECH, Alla Attending Unavailable Feliberto PHARMACY TECH-C, Iftikhar Primary Care Provider [phone] Feilberto PHARMACY TECH-C, Iftikhar Referring Provider [place] PHARMACY TECH-C, Alla Attending Provider Medications Current Medications Medication Drug Class(es) Dates Sig (Normalized) Sig (Original) [place] (Nk) (1 source) Start: 11-13-2023 [place] (Nk) A ctive November 13, 2023 12:00am Completed/Discontinued Medications Medication Drug Class(es) Dates Sig (Normalized) Sig (Original) OXYCODONE-ACETAMIN OPHEN (3 sources) Opioid Agonist Start: 03-07-2017 take 1 tablet by mouth four times daily as needed PERCOCET 5-325 MG TABS One tablet by mouth four times daily as needed OXYCODONE-ACETAMINO PHEN [id number] Sri Damon MD Start: 03-07-2017 take 1 tablet by chela th four times daily as needed PERCOCET 5-325 MG TABS One tablet by chela th four times daily as needed OXYCODONE-ACETAMINOPHEN [id number] Sri Damon MD [id number] actuat albuterol 0.09 mg/actuat metered dose [...] AMITRIPTYLINE HCL 10 MG TABS AMITRIPTYLINE HCL [id number] Sri Damon MD breath-actuated 120 actuat beclomethasone [...] 1-20 MG-MCG(24) TABS NORETHIN CEFERINO- ETH ESTRAD-FE [id number] Sri Damon MD Start: 06-26-2016 End: 06-21-2017 Norethindrone Ac-Eth Estradi ol 1 EACH tablet Discontinued 1 NMA PO DAILY June 26, 2016 1:00am June 21, 2017 6:40pm levonorgestrel 0.394545 mg/hr intrauterine system (2 sources) Progestin, Progestin-containing [...] 03-07-2017 [facility] MELATONIN 3 MG TABS MELATONIN [id number] Sri Damon MD montelukast 10 mg oral [...] tablet by chela th daily at bedtime. naratriptan 2.5 mg [...] tablet by mouth twice daily SULFAMETHOXAZOLE-T RIMETHOPRIM [id number] Sri Damon MD topiramate 25 mg oral [...] Active Problems Problem Classification Problem Date Documented Ran esteves Episodic/Chronic Asthma (2 sources) Asthma; Translations: [...] Test Name Value Interpretation Reference Range Facility [facility] 07-15-2023 [facility] Telephone (UCTR) KACIE OLIVIA ([id number]) 89 F Date Time Provider Department 07/15/[address] [facility] During your visit today, we [...] Signed Patient active MyChart. Patient notified via t3n Magazin message. JEFFRY Michael Donna M, RN 07/15/2023 [...] Encounter Status:Closed by MIROSLAVA GRIDER on 07/15/23 [facility] Bacteria Wnd Culton 07-11-19 Bacteria identified [...] , Intermediate >4 , Resistant >8 Abnormal [facility] Comment on above: Performed By: #### 6 [id number] #### [facility] CLIA [id number] [address] [place], [place] [address] [place] CNOVon 07-11-2023 CNOV Office Visit (UCWSTR ) KACIE OLIVIA ([id number]) 89 F Date Time Provider Department 07/11/23 3:15 PM MARK HERNANDEZ [facility] During your visit today, we [...] Diagnosis:Sore throat [J02.9] Order(s):STREP A MOLECULAR (POC) [5035152] Order #: [id number]. #:[id number] CONSULT TO ENT [9004] Order #: [id number]: 1 FUTURE ABSCESS AND WOUND CULTURE WITH GRAM STAIN [SQWCUL] Order #: [id number]. #:[id number] Prescriptions as of 07/11/2023 - levonorgestrel (MIRENA) [...] Encounter Status:Closed by MARK HERNANDEZ on 07/11/23 [facility] Eris 01-15-2023 CNOV Office Visit (UCWSTR ) KACIE OLIVIA ([id number]) 89 F Date Time Provider Department 01/15/23 [...] Acute onset one month ago +sore throat Warthen like something is on their +left sided tender lymph nodes Denies accompanying URI sx Denies cough Denies fever or chills Denies difficulty handling secretions or swallowing. The history is provided by the patient. No multi disciplined language analyst was used. Sore Throat This is a [...] Mouth/Throat: Mouth: (more content not included)... Normal [facility] CULTURE THROATon 05-15-2021 CULTURE THROAT CULTURE THROAT _THROAT CULTURE_ M I C R O B I O L O G Y R E P O R T FINAL ----- Antimicrobial Susceptibility and Organism Identification Report ------ Specimen Number : [id number] Requested : 05/15/21 Specimen Source : THROAT Collected : 05/15/21 17:55 Duong of Isolation : OUTPATIENT Received : 05/15/21 17:55 Requesting Physician : OLAF Patient/Specimen Tests and Comments Specimen Comments ------ ------ FINAL REPORT: MODERATE GROWTH COAG POSITIVE STAPH Organisms Identified -------- * 01 Staphylococcus aureus 05/20/21 Tech : Source : THROAT ID # : [id number] FINAL Report Date : / / : [...] Ticar/K Clav'ate for gram positives based on machine stacker's breakpoints. Tech : Source : THROAT ID # : [id number] FINAL Report Date : / / : Collected : 05/15/21 17:55 05/20/21.1301.KLS. 05/18/21.1355.KLS. 05/17/21.0724.MERA. 05/20/21.1301.KLS.COMPLETE Normal [facility] Comment on above: Performed By: #### 2 [id number] #### [facility],[address] [address] Progress Noteon 03-14-2017 Laboratory Sample Carrier Authentication Interface Message Text Chief ComplaintPatient presents [...] 1:47 PMAdditional Tests Color Right LeftHardy - [place] - Rittler 04/02 04/02Stereo Fly: + Animals: [...] Age: NONEManifest Refraction (Auto) Sphere Cylinder AxisRight Cresson +0.25 059Left Cresson +0.50 086 Pupillary Distance: 63Cycloplegic Refraction Sphere Cylinder Boone DistRight Cresson Sphere 20/20Left Cresson +0.50 085 20/20Final Rx Sphere Cylinder AxisRight +1.00 SphereLeft +1.00 +0.50 085 Type: SVL Expiration Date: 03/15/2019 Pupillary Distance: 63Impression/Plan/Recommenda tions:1. Hyperopia, bilateral2. Accommodative dysfunctionGlasses prescription given for near tasks.Mild accommodative dysfunction on testing but able to read 20/20 at near.Fisher Chart given for at home exercises.RTC for yearly eye exams or sooner if increase Normal [facility] Append: vaginal cyston 03-07 Documentation of current medications (procedure) Done Invalid Interpretation Code [facility] Tobacco use [facility] Never smoker Invalid Interpretation Code [facility] Office Visit: vaginal cyston 03-07-2017 Documentation of current medications (procedure) Done Invalid Interpretation Code [facility] Fall risk assessment No Invalid Interpretation Code [facility] Tobacco smoking status NHIS Never Invalid Interpretation Code [facility] Tobacco use HS Never smoker Invalid Interpretation Code [facility] Progress Noteon 03-05-2017 Laboratory Sample Carrier Authentication Interface Message Text Date of service: 03/05/2017[facility] - Follow-upEmjosselyn TopeteJimOB: 2000MRN: [id number]: 16 y.o.Allergies: No Known Allergies - reviewed [...] that Kacie be cleared to cheer at [employer] 02/15. I had agreed to do this if Kacie had been on amitriptyline for a weekand had a decrease in headaches. See 02/21/17 phone note1. Headaches Headaches are back a little but are not as intense. 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 This summer she has worked 20-22 hrs, and in the fall it willbe 15 hrs/week. She is hoping to cheer, plays flute in the bandPhysical examBP 114/70 Pulse 104 Ht 167.5 cm Wt 88.3 kg BMI 31.47 kg/v1Ykujybs examSkin:NormalHEENT: No pain on palpation of head [...] manual muscle testing at biceps, triceps, wristdorsiflexion, business analysis consultant, hip flexion, knee flexion, ankle dorsiflexion, ankleplantarflexion [...] magnesium oxideIncrease amitriptyline [facility] for followupFOLLOWUP6 monthsCounseling and/or coordination of care (face to face) was 20 minutes, which ismore than 50% of the total time of 30 minutes spent on this encounterSmarco a Padilla MD Normal [facility] Progress Noteon 02-05-2017 Laboratory Sample Carrier Authentication Interface Message Text [facility] [place] [facility]ellB[facility] Injury Program NoteName: Kacie TopeteGrzegorz: [id number] of service: 02/05/2017Referring physician: Deepali RodriguezSupplements: noneMedications:Current [...] following pre-injury problem list:Patient Active Problem ListDiagnosis Asthma.Kaice has had one previous head injuryPresent episode: [...] nausea.Management = initially treated with restSeen [facility] [place] [facility] Symptoms were light sensitivity, blurredvision, headache, nausea [...] = headacheManagement = Seen 06/02/10 ([facility]). Symptoms = headache. Exam =nonfocal. Diagnosed a mild concussion. Mother reports headache and dizziness X1 day. Note from Dr Gerhard cedillo for play at the time of the 06/02/10 visitImaging = nonePost Concussive Symptoms reviewed in the following domains:Physical:Headache:Em josselyn dates headaches to the concussion in May 2016Current headache history:Frequency: dailyDescription: Onset without aura of pentecostalism, frontal or forehead pressure and/orpounding, intensity 7/10, [...] Kacie is a rising 12 grader at [employer]. Kacie has no history of learningdisability, but when she was in elementary school, she went to [employer] for reading comprehension support in 3rd grade. Her 7th grade teachersaid she would never excel in Kuwaiti, but the teacher last year recommended APEnglish. 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 [place] she has worked 20-22 hrs, and in the fall it will be 15 hrs/week. She ishoping to cheer, plays flute in the bandPhysical examBP 110/70 Pulse 96 Ht 167.6 cm Wt 86.5 kg BMI 30.79 kg/i3Ickkhia examSkin:NormalHEENT: No pain on palpation of head [...] manual muscle testing at biceps, triceps, wristdorsiflexion, business analysis consultant, hip flexion, knee flexion, ankle dorsiflexion, ankleplantarflexion [...] Assessment of Neuropsychological Status (02/05/17- )Index Scores: (vsdr=517, standard deviation=15)Immediate Memory: 97Visuospatial/Constructiona l: 90Language: 109Attention: 97Delayed Memory: 92Recommendations:No concerns. No decline in academics since head injury last May, but Kaciereports that she has had to put extra effort to keep good gradesMedical decision-making: Kacie has persisting chronic daily headaches, which, in [...] at [facility]about [facility]. Please call [phone] to schedule thisMood treatment:Psychological evaluation and counseling with a therapist of your choice orbiobehavioral therapy. See printed list for therapists in your area to call -an order for this has been provided today. You can schedule with Dr Marvin garcia [phone] accommodations - A separate return to learn/academic accommodation plan(CEFERINO) for school has not been given to the family:Other recommendationsGeneral physical activity limitations: Kacie should NEVER return to play ifstill having ANY symptoms Be sure that Kacie does not have any symptoms at restand while participating in physical activity or activities that require a lot ofthinking or concentration. Be sure that the inhalation therapy aides teacher, motorcoach operator,and/or computer technology trainer are aware of the injury and [...] 1 week after you have been on aalpcyzntoxfr40 mg at night for 1 week). First, [...] return, stop theseactivities and let your health hiv/aids care nurse know. Identify someone tomonitor your progress through this sequence each day (computer technology trainer, motorcoach operator,bacteriology teacher, and/or parent).ACTIVITY LEVELS:1. May start low [...] spent on this encounterSmarco a Padilla MD [facility] Vital Signs Date Time Vital Sign Value Performing Clinician Jagjit gross 01-05-2025 09:26-0400 Body height 167.64 cm Iftikhar MARCUS Work Phone: [facility] 01-05-2025 09:22-0400 Body mass index (BMI) [Ratio] 34.9 kg/m2 Iftikhar MARCUS Work Phone: [facility] 01-05-2025 09:22-0400 Body weight 98.2 kg Iftikhar MARCUS Work Phone: [facility] 01-05-2025 09:22-0400 Diastolic blood pressure 82 mm[Hg] Iftikhar Dao PHARMACY TECH-C Work Phone: [facility] 01-05-2025 09:22-0400 Systolic blood pressure 116 mm[Hg] Iftikhar Dao PHARMACY TECH-C Work Phone: [facility] 03-07-2017 16:31-0400 BMI (Body Mass Index) 31.6 kg/m2 Sri Damon MD [facility] 03-07-2017 16:31-0400 Body Temperature 97.7 [degF] Sri Damon MD [facility] 03-07-2017 16:31-0400 BP Diastolic 76 mm[Hg] Sri Damon MD [facility] 03-07-2017 16:31-0400 BP Systolic 126 mm[Hg] Sri Damon MD [facility] 03-07-2017 16:31-0400 Height 167.64 cm Sri Damon MD [facility] 03-07-2017 16:31-0400 Respiratory Rate 16 /min Sri Damon MD [facility] 03-07-2017 16:31-0400 Weight 88.81 kg Sri Damon MD [facility] Encounters Encounter Date Encounter Type Care Provider Facility Start: 01-05-2025 End: 01-05-2025 ambulatory Iftikhar Dao NP Facility:[facility] Start: 01-05-2025 End: 01-05-2025 Patient encounter procedure Alla LUDWIGC -[facility] Work Phone: Start: 01-05-2025 End: 01-05-2025 Patient encounter status Alla Streeter NP-C [facility] Start: 07-11-2023 End: 07-11-2023 ambulatory Facility:[facility] Start: 01-15-2023 End: 01-15-2023 ambulatory Facility:[facility] Start: 10-17-2021 End: 10-17-2021 ambulatory Katie Fishman APRN.WOOD BARKER Work Phone: Neurology Comment on above: Migraine without aur a and without status migrainosus, not intractable (Primary Dx) Start: 10-17-2021 End: 10-17-2021 Telemedicine consultation with patient Katie Abelverodenice OTONIEL Work Phone: [facility] Start: 10-10-2021 Refill Katie Huffcathy morales APRN.CNP Work Phone: Neurology Comment on above: Refill Request Start: 05-15-2021 End: 05-15-2021 ambulatory [facility] Start: 03-14-2017 End: 03-14-2017 Ambulatory [facility] Start: 03-05-2017 End: 03-05-2017 Ambulatory [facility] Start: 02-05-2017 End: 02-05-2017 [facility] Start: 02-05-2017 End: 02-06-2017 Ambulatory [facility] Procedures Date Procedure Procedure Detail Performing Clinician Start: 10-17-2021 Adult depression screening assessment Katie Melissa FREDERICK Work Phone: Start: 10-06-2020 Adult depression screening assessment Katie Abelverodenice OTONIEL Work Phone: Plan of Treatment Date Care Activity Detail Author Start: 10-17-2022 Adult depression screening assessment DEPRESSION SCREENING [facility] Start: 02-22-2022 Influenza vaccination INFLUENZA (Season Ended) [facility] Start: 10-06-2021 Adult depression screening assessment DEPRESSION SCREENING [facility] Start: 05-08-2021 Urine microalbumin profile DTAP,TDAP,TD (7 - Td or Tdap) [facility] Start: 03-25-2021 COVID-19 VACCINE (3 - Booster for Moderna series) COVID-19 VACCINE (3 - Booster for Moderna series) [facility] Start: 11-20-2020 COVID-19 VACCINE (2 - Moderna 3-dose series) COVID-19 VACCINE (2 - Moderna 3-dose series) [facility] Start: 11-05-2020 PAP TESTING PAP TESTING [facility] Start: 06-23-2020 ANNUAL PCP TEAM CHRONIC DISEASE VISIT ANNUAL PCP TEAM CHRONIC DISEASE VISIT [facility] Start: 11-05-2018 ONE PNEUMOVAX PRIOR TO AGE 65 ONE PNEUMOVAX PRIOR TO AGE 65 [facility] Start: 11-05-2017 ANNUAL PCP TEAM CHRONIC DISEASE VISIT ANNUAL PCP TEAM CHRONIC DISEASE VISIT [facility] Start: 11-05-2017 CHLAMYDIA SCREENING (18-24) CHLAMYDIA SCREENING (18-24) [facility] Start: 11-05-2017 GC (GONORRHEA) SCREENING (18-24) GC (GONORRHEA) SCREENING (18-24) [facility] Start: 11-05-2017 HEPATITIS C SCREENING HEPATITIS C SCREENING [facility] Start: 11-05-2017 HIV SCREENING HIV SCREENING [facility] Start: 11-05-2017 SPIROMETRY SPIROMETRY [facility] Start: 03-11-2017 End: 03-11-2017 Appointment Appointment [facility] Start: 03-07-2017 End: 03-07-2017 Appointment Appointment [facility] Start: 11-05-2013 PEDS TO ADULT TRANSITION ANNUAL ASSESSMENT PEDS TO ADULT TRANSITION ANNUAL ASSESSMENT [facility] Start: 2011 PEDS TO ADULT TRANSITION INITIAL DISCUSSION PEDS TO ADULT TRANSITION INITIAL DISCUSSION [facility] Start: 11-05-2009 MENINGOCOCCAL B: Consider based on risk (1 of 2 - Risk Bexsero 2-dose series) MENINGOCOCCAL B: Consider based on risk (1 of 2 - Risk Bexsero 2-dose series) [facility] Start: 2003 ASTHMA CONTROL TEST ASTHMA CONTROL TEST [facility] Start: 11-05-2001 ASTHMA ACTION PLAN ASTHMA ACTION PLAN [facility] Immunization Date Immunization Notes Care Provider Fa cility 10-23-2020 COVID-19 vaccine, fu ll dose (MODERNA) Katie Fishman APRN.[facility] Work Phone: [facility] 01-28-2017 hepatitis A vaccine, pediatric/adolescent dosage, 2 dose schedule Katie Fishman APRN.[facility] Work Phone: [facility] 01-26-2016 meningococcal polysaccharide (groups A, C, Y and W-135) diphtheria toxoid conjugate vaccine (MCV4P) Katie Fishman APRN.[facility]ARK[facility] Work Phone: [facility] 01-22-2014 human papilloma viru s vaccine, quadrivalent Katie Janethi DIRECT CARE STAFFER.[facility] Work Phone: [facility] 12-17-2012 hepatitis A vaccine, unspecified formulation Katie Fowleri DIRECT CARE STAFFER.[facility] Work Phone: [facility] 12-17-2012 human papilloma viru s vaccine, quadrivalent Katie Janethi DIRECT CARE STAFFER.[facility] Work Phone: [facility] 01-26-2012 human papilloma viru s vaccine, quadrivalent Katie Nafelai DIRECT CARE STAFFER.[facility] Work Phone: [facility] Work Phone: 05-08-2011 influenza virus vacc ine, live, attenuated, for intranasal use Katie Fowleri DIRECT CARE STAFFER.[facility] Work Phone: [facility] Work Phone: 05-08-2011 Meningococcal, MCV4, unspecified conjugate formulation(groups A, C, Y and W-135) Katie Fishman DIRECT CARE STAFFER.[facility] Work Phone: [facility] Work Phone: 05-08-2011 tetanus toxoid, redu marilia diphtheria toxoid, and acellular pertussis vaccine, adsorbed Katie Fishman DIRECT CARE STAFFER.[facility] Work Phone: [facility] Work Phone: 03-13-2010 influenza virus vacc ine, live, attenuated, for intranasal use Katie Fowleri DIRECT CARE STAFFER.[facility] Work Phone: [facility] Work Phone: 04-11-2009 influenza virus vacc ine, live, attenuated, for intranasal use Katie Janethi DIRECT CARE STAFFER.[facility] Work Phone: [facility] 05-27-2008 influenza virus vacc ine, live, attenuated, for intranasal use Katie Janethi DIRECT CARE STAFFER.[facility] Work Phone: [facility] Work Phone: 01-18-2005 diphtheria, tetanus toxoids and pertussis vaccine Katie Nacathyovski DIRECT CARE STAFFER.[facility] Work Phone: [facility] Work Phone: 01-18-2005 measles, mumps and rubella virus vaccine Katie Nacathyovski DIRECT CARE STAFFER.[facility] Work Phone: [facility] Work Phone: 01-18-2005 poliovirus vaccine, inactivated Katie Nacathyovski DIRECT CARE STAFFER.[facility] Work Phone: [facility] Work Phone: 02-17-2001 diphtheria, tetanus toxoids and pertussis vaccine Katie Nacathyovski DIRECT CARE STAFFER.[facility] Work Phone: [facility] Work Phone: 02-17-2001 haemophilus influenz ae type b vaccine, HbOC conjugate Katie Nafelai DIRECT CARE STAFFER.[facility] Work Phone: [facility] Work Phone: 11-20-2000 measles, mumps and rubella virus vaccine Katie Nacathyovski DIRECT CARE STAFFER.[facility] Work Phone: [facility] Work Phone: 08-08-2000 hepatitis B vaccine, pediatric or pediatric/adolescent dosage Katie Janethi DIRECT CARE STAFFER.[facility] Work Phone: [facility] Work Phone: 05-13-2000 diphtheria, tetanus toxoids and pertussis vaccine Katie Nacathyovski DIRECT CARE STAFFER.[facility] Work Phone: [facility] Work Phone: 05-13-2000 haemophilus influenz ae type b vaccine, HbOC conjugate Katie Nacathyovski DIRECT CARE STAFFER.[facility] Work Phone: [facility] Work Phone: 05-13-2000 poliovirus vaccine, inactivated Katie Najdovski DIRECT CARE STAFFER.[facility] Work Phone: [facility] Work Phone: 03-29-2000 diphtheria, tetanus toxoids and pertussis vaccine Katie Najdovski DIRECT CARE STAFFER.[facility] Work Phone: [facility] Work Phone: 03-29-2000 haemophilus influenz ae type b vaccine, HbOC conjugate Katie Najdovski DIRECT CARE STAFFER.[facility] Work Phone: [facility] Work Phone: 03-29-2000 poliovirus vaccine, inactivated Katie Najdovski DIRECT CARE STAFFER.[facility] Work Phone: [facility] Work Phone: 01-09-2000 diphtheria, tetanus toxoids and pertussis vaccine Katie Najdovski DIRECT CARE STAFFER.[facility] Work Phone: [facility] Work Phone: 01-09-2000 haemophilus influenz ae type b vaccine, HbOC conjugate Katie Najdovski DIRECT CARE STAFFER.[facility] Work Phone: [facility] Work Phone: 01-09-2000 poliovirus vaccine, inactivated Katie Najdovski DIRECT CARE STAFFER.[facility] Work Phone: [facility] Work Phone: 2000 hepatitis B vaccine, pediatric or pediatric/adolescent dosage Katie Najdovski DIRECT CARE STAFFER.[facility] Work Phone: [facility] Work Phone: 1999 hepatitis B vaccine, pediatric or pediatric/adolescent dosage Katie Najdovski DIRECT CARE STAFFER.[facility] Work Phone: [facility] Work Phone: Payers Date Payer Category Payer Self-pay 2019 Unknown [id number] 2019 Unknown MMO MMO [employer] [id number] 2019-Present [phone] [address] [place] [address] PPO [id number] 1999 Unknown [id number] Unknown [id number] Social History Date Type Detail Facility Start: 01-05-2025 Tobacco smoking stat [facility] Never smoked tobacco [facility] Start: 10-06-2020 End: 10-17-2021 Alcohol intake Current non-drinker of alcohol (finding) [facility] Start: 2000 Sex Assigned At Female C [facility] [facility] Identifies as ma le gender (finding) [facility] Heterosexual (finding) [facility] Progress note 07-11-2023 Note Date & Type Note Facility 07-11-2023 Note HNO ID: [id number] Author: MARK HERNANDEZ MD Service: ? Author [...] ENT wants blood work. Mark Hernandez MD [facility] Progress note 01-15-2023 Note Date & Type Note Facility 01-15-2023 Note HNO ID: [id number] Author: Leigh Luciano APRN.[facility] Service: ? Author Type: Nurse Practitioner Type: Progress Notes Filed: 01/15/2023 5:00 PM Note Text: This note was created using NoteWriter. Subjective Kacie Olivia is a 22 year old female. 22 year old female with PMH migraines presents for complaints of illness. Acute onset one month ago +sore throat [place] like something is on their +left sided tender lymph nodes Denies accompanying URI sx Denies cough Denies fever or chills Denies difficulty handling secretions or swallowing. The history is provided by the patient. No multi disciplined language analyst was used. Sore Throat This is a [...] movements intact. Conjunctiva (more content not included)... [facility] History of Present illness Narrative 10-17-2021 Katie Fishman APRN.[facility] - 10/17/2021 2:30 PM EDT Note Date [...] these with the patient: Yes, Katie Fishman APRN.[facility] HEADACHE SCORES: Headache Questions 10/29/2019 10/06/2020 10/17/2021 [...] and clear, coherent, and relevant. Short and terminal superintendent memory, cognition and general fund of knowledge [...] reactions and drug interactions. Follow-up: update via kinkonhart, 6 months, 1 year, PRN Level of service: Est level 3 (20-29 min). Time spent 24 min on the day of service, which included preparing to see the patient, [id number] patient care, completing clinical documentation, obtaining and/or reviewing separately obtained history, performing a medically appropriate examination, counseling and educating the patient/family/caregiver and ordering medications, tests, or procedures. Katie Fishman APRN.[facility] documented in this encounter [facility] Note 10-10-2021 Telephone Encounter - Katie Fishman [...] Pharmacy Name: [facility] documented in this encounter [facility] Evaluation note Note Date & Type Note Facility Evaluation note Diagnosis Migraine without aura and without status migrainosus, not intractable- Primary Migraine without aura, without mention of intractable migraine without mention of status migrainosus documented in this encounter [facility] Evaluation note Note Date & Type Note Facility Evaluation note Diagnosis Onset Date Resolution Encounter for routine gynecological examination noneactive January 05, 2025 9:19am [facility] Work Phone: Reason for referral (narrative) Note Date & Type Note Facility Reason for referral (narrative) No reason for referral information available [facility] Work Phone: Summary Purpose Family History Relationship Condition Age at Onset Recorded Date/T carmen grandmother Cardiac disease Unknown Diabetes mellitus Unknown grandfather Cardiac disease Unknown Cerebral aneurysm Unknown Advance Directives No Advanced Directives Records FoundNo Advanced Directives Records FoundNo Advanced Directives Records FoundNo Advanced Directives Records Found Chief Complaint and Reason for Visit Chief Complaint 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, 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 Reason for Visit Admit Date Encounter for routine gynecological exam ination Nathaly 15th, 2025 9:19am Additional Source Comments INFORMATION SOURCE (unrecogn ized section and content) DATE CREATED AUTHOR 12/18/2017 [facility] DATE CREATED AUTHOR AUTHOR'S ORGANIZ ATION 05/22/2021 [facility] DATE CREATED AUTHOR AUTHOR'S ORGANIZ ATION 07/16/2023 [facility] DATE CREATED AUTHOR AUTHOR'S ORGANIZ ATION 01/03/2025 [facility] Source Comments (unrecognize d section and content) In the event this informatio n is protected by the Federal Confidentiality of Alcohol and Drug Abuse Patient Records regulations: The Federal rules restrict any use of the information to criminally investigate or prosecute any alcohol or drug abuse patient.[facility] the event this information is protected by the Federal Confidentiality of Alcohol and Drug Abuse Patient Records regulations: The Federal rules restrict any use of the information to criminally investigate or prosecute any alcohol or drug abuse patient.[facility] Reason for Visit (unrecogniz ed section and [...] BE BASED ON THE PRIMARY CLINICAL RECORDS. [employer] provides no warranty or guarantee of the accuracy or completeness of information in this document.
[2025-01-07 06:08] LABS: Chlamydia By Nucleic Acid AMP Negative (Negative); Gonococcus By Nucleic Acid AMP Negative (Negative)
== END | disposition home or self-care (01) ==
LOC: LABSPEC 12:05
PROVIDERS: PCP Nurse Practitioner Family; Referring Provider Nurse Practitioner Women's Health; Visit Provider Nurse Practitioner Women's Health
DX: Z11.3 Encounter for screening for infections with a predominantly sexual mode of transmission (principal)
CPT/HCPCS: 87491; 87591